=== PATIENT | male | born 1940 | race Caucasian/White ===

== ENCOUNTER 2018-05-07 16:32 | Observation (INO) | payer OTHER ==
--- OUTSIDE RECORDS SUMMARY | 2018-05-07 17:30 | XMS REPORT | Clinical Summary ---
:1940 Author Organization [facility] Address [address] [place] [address] Care Team Providers Name Role Phone Jose De Jesus Michael MD Primary Care Provider Allergies No Known Allergies Current Medications Prescription Sig. Disp. Refills Start Date End Date Status aspirin (ECOTRIN) 81 Take 81 mg by Active MG enteric coated mouth daily. tablet metoprolol succinate Take 25 mg by Active XL (TOPROL-XL) 25 mg mouth daily. 24 hr tablet valsartan-hydrochlor Take 1 tablet Active othiazide by mouth (DIOVAN-HCT) 160-25 daily. mg per tablet pravastatin Take 40 mg by Active (PRAVACHOL) 40 MG mouth nightly. tablet clopidogrel (PLAVIX) Take 75 mg by Active 75 mg tablet mouth daily. tamsulosin (FLOMAX) Take 0.4 mg by Active 0.4 mg mouth 2 (two) capsule,extended times a day. release 24hr denosumab (PROLIA) Inject 60 mg Active 60 mg/mL syringe under the skin syringe every 6 (six) months. cholecalciferol, Take 5,000 Active vitamin D3, (VITAMIN Units by mouth D3) 1,000 unit daily. tablet cyanocobalamin 250 Take 2,500 mcg Active MCG tablet by mouth nightly. multivitamin Take 1 tablet Active (THERAGRAN) tablet by mouth daily. ascorbic acid, Take 1,000 mg Active vitamin C, (vitamin by mouth C) 1000 MG tablet nightly. VITAMIN K2 ORAL Take 1 tablet Active by mouth daily. UBIDECARENONE Take 100 mg by Active (COQ-10 ORAL) mouth daily. magnesium oxide 250 Take 1,000 mg Active mg tablet by mouth 2 (two) times a day. BACILLUS COAGULANS Take 1 tablet Active (PROBIOTIC, B. by mouth 2 COAGULANS, ORAL) (two) times a day. polyethylene glycol Take 17 g by Active (MIRALAX) 17 gram mouth 3 packet (three) times a week. biotin 1 mg capsule Take 5,000 mg Active by mouth daily. GLUTATHIONE MISC 2 capsules Active daily. pantoprazole TAKE ONE (1) 90 tablet 2 02/18/2018 Active (PROTONIX) 40 MG EC TABLET(S) BY tablet MOUTH ONCE A DAY. pantoprazole Take 1 tablet 90 tablet 3 12/19/2016 Discontinued (PROTONIX) 40 MG EC (40 mg total) 8 tablet by mouth daily. Active Problems Problem Noted Date Ischemic cardiomyopathy 11/26/2016 Hood esophagus Colon polyp Diverticulosis GERD (gastroesophageal reflux disease) Ulcerative colitis Encounters Date Type Specialty Care Team Description 02/18/2018 Refill Gastroenterology Sly Nuñez MD after 05/06/2017 Family History Medical History Relation Name Comments Cancer Brother Cancer Father Heart disease Mother Relation Name Status Comments Brother Father Mother Social History Tobacco Use Types Packs/Day Years Used Date Former Smoker 10 Alcohol Use Drinks/Week oz/Week Comments Yes 1 Glasses of wine 0.6 Sex Assigned at Date Recorded Not on file Last Filed Vital Signs Not on file Plan of Treatment Health Maintenance Due Date Last Done Comments SHINGRIX VACCINE (#1) 1989 ZOSTER VACCINE 1999 PNEUMOCOCCAL POLYSACCHARIDE VACCINE AGE 65 AND OVER 2004 PNEUMOCOCCAL-13 2004 INFLUENZA VACCINE 04/01/2018 Implants Implanted Type Area Amf Mechanic Device Expiration Model / Identifier Date Serial / Lot Endotak [place] G Model 0295 59 Cm Df4 Tachy Lead - [id number] Cardiac Pacing N/A: CATHAY 07/04/2018 0295 / Implanted: 11/26/2016 (Quantity not on file) Leads or N/A [employer] CRM [id number] / Electrodes or [id number] Accessories Acuity X 4 - [id number] Cardiac Pacing N/A: CATHAY 01/14/2018 4671 / Implanted: 11/26/2016 (Quantity not on file) Leads or N/A [employer] CRM [id number] / Electrodes or [id number] Accessories Ingevity Mri Pacing Lead 45cm - [id number] Cardiac Pacing N/A: CATHAY [id number] 45 / Implanted: 11/26/2016 (Quantity not on file) Leads or N/A [employer]- CRM [id number] / Electrodes or [id number] Accessories Dynagen Direct Care Provider ICD CATHAY [id number] / Implanted: Qty: 1 on 11/26/2016 by Arya Pratt MD [employer] [id number] / [id number] Results Not on fileafter 05/06/2017 Insurance Payer Benefit Plan / Group Subscriber ID Type Phone Address AETNA MEDICARE AETNA MEDICARE HMO/PPO [facility] xxxxxxxx HMO DR PULIDO [phone] [address]
[2018-05-07 17:48] VITALS: BMI 30.6
[2018-05-07] MEDS ORDERED: ALBUTEROL 2.5 MG/3 ML NEB SOL IH PRN (17:59)
[2018-05-07] MEDS ORDERED: PNEUMOCOCCAL VACCINE 0.5 ML IMVAC ONE (18:00)
[2018-05-07] MEDS ORDERED: ONDANSETRON 4 MG (ODT) TAB PO PRN (18:00)
[2018-05-07] MEDS ORDERED: ONDANSETRON 4 MG/2 ML VIAL IV PRN (18:00)
[2018-05-07] MEDS ORDERED: POLYETHYL GLY 3350 17 GM/DOSE PO PRN (18:00)
[2018-05-07] MEDS ORDERED: LOPERAMIDE HCL 2 MG CAPSULE PO PRN (18:00)
[2018-05-07] MEDS ORDERED: DIPHENHYDRAMINE 25 MG TAB/CAP PO PRN (18:00)
[2018-05-07] MEDS ORDERED: ACETAMINOPHEN 325 MG TABLET PO PRN (18:00)
[2018-05-07] MEDS: NACHLORIDE 0.45% 1,000 ML IV SCH (18:52)
[2018-05-07 18:56] LABS: Absolute Lymphocytes (CBC) 1.1 K/uL (0.7-4.9); Absolute Monocytes 1.1 K/uL (0.1-1.3); Basophils % 0.9 % (0-1.3); Eosinophils % 2.5 % (0-4.4); Hematocrit 43.3 % (39.6-49.0); Lymphocytes % 8.1 % (15.3-44.8); MCV 87.6 fL (80-100); MPV 9.7 fL (7.6-11.3); Monocytes % 7.9 % (3.3-12.3); RBC Red Blood Cell Count 4.94 M/uL (4.33-5.43)
[2018-05-07 19:18] LABS: Protime INR 1.23
[2018-05-07] MEDS: LEVALBUTEROL 1.25 MG/3 ML NEB IH SCH (19:39)
[2018-05-07] MEDS: IPRATROPIUM BROM 0.5MG/2.5ML IH SCH (19:39)
[2018-05-07 20:10] LABS: ALT/SGPT 12 U/L (12-78); AST/SGOT 21 U/L (15-37); Albumin 3.8 g/dL (3.4-5.0); Alkaline Phosphatase 70 U/L (45-117); BUN Blood Urea Nitrogen 15 mg/dL (7-18); Bicarbonate 30 mmol/L (21-32); Bilirubin Direct 0.3 mg/dL (0-0.2); Bilirubin Total 0.7 mg/dL (0.2-1.0); Glucose Level 107 mg/dL (74-106); Magnesium 2.2 mg/dL (1.8-2.4); NT PRO-BNP 819 pg/mL (<450); Phosphorus 2.8 mg/dL (2.5-4.9); Potassium 3.8 mmol/L (3.5-5.1); Protein, Total 8.5 g/dL (6.4-8.2); Sodium Level 135 mmol/L (136-145); Thyroid Stimulating Hormone 0.788 uIU/mL (0.360-3.740)
[2018-05-07] MEDS: METOPROLOL XL 25 MG TAB PO SCH (21:00)
[2018-05-07] MEDS ORDERED: CIPROFLOXACIN 400 MG/200 ML IVPB IV SCH (21:00)
[2018-05-07] MEDS: ENOXAPARIN 40 MG/0.4 ML SQ SCH (21:33)
[2018-05-07] MEDS: ATORVASTATIN 10 MG TAB PO SCH (21:37)
[2018-05-07 22:05] LABS: Urine Appearance CLEAR; Urine Bilirubin NEGATIVE (NEG); Urine Blood NEGATIVE (NEG); Urine Color YELLOW; Urine Glucose NEGATIVE (NEG); Urine Protein NEGATIVE (NEG); Urine Specific Gravity >=1.030 (1.005-1.030); Urine Urobilinogen 0.2 mg/dL (0.2-1.0); Urine pH 5.5 (5.0-7.0)
--- NOTE | 2018-05-07 22:13 | RAD REPORT ---
EXAM DESCRIPTION: CT - Chest For Pe Angio - 05/07/2018 9:03 pm CLINICAL HISTORY: Chest pain COMPARISON: None. TECHNIQUE: Dynamically enhanced axial 3 mm thick images of the chest were obtained during administra tion of <100> mL Isovue 370 IV contrast. Coronal and oblique reconstruction images were generated and reviewed. Exam utilizes a protocol for optimal evaluation of pulmonary arterial tree. Maximum intensity projections 3D imaging was utilized All CT scans are performed using dose optimization technique as appropriate and may include automated exposure control or mA/KV adjustment according to patient size. FINDINGS: A pulmonary embolus is not seen. A thoracic aortic aneurysm is not noted. A pleural effusion is not seen. A pericardial effusion is not seen. Moderate ground-glass opacities are present within the right lung. Mild ground-glass opacities are se en within the left lung. Mild to moderate bilateral interstitial lung opacities are present which are mostly subpleural IMPRESSION: Negative for a pulmonary embolism. Mild to moderate ground-glass opacities within the lungs indicative of an alveolitis. This is superim posed over [id number] bilateral interstitial lung opacities which have the appearance of pulmon silvia fibrosis
--- NOTE | 2018-05-07 22:15 | RAD REPORT ---
EXAM DESCRIPTION: Larryt Pa And Lat (2 Views)05/07/2018 9:17 pm CLINICAL HISTORY: Chest pain COMPARISON: 2016 FINDINGS: Moderate bilateral pulmonary opacities are seen. The heart is moderately enlarged. Pacema ker leads are in place IMPRESSION: Moderate bilateral pulmonary opacities probably represent pulmonary edema or pneumonia/ pneumonitis superimposed over pulmonary fibrosis
[2018-05-07 22:16] LABS: Urine Microscopic Reflex NO UMIC
--- NOTE | 2018-05-07 22:51 | RAD REPORT ---
EXAM DESCRIPTION: CT - Abdomen Pelvis W Contrast - 05/07/2018 9:03 pm CLINICAL HISTORY: Abdominal pain. COMPARISON: 2013 TECHNIQUE: Computed axial tomography of the abdomen and pelvis was obtained. 100 cc Isovue-300 is ad ministered intravenously. Oral contrast was given. All CT scans are performed using dose optimization technique as appropriate and may include automated exposure control or mA/KV adjustment according to patient size. FINDINGS: A hiatal hernia contains a portion of the pancreas. It is unchanged in appearance from the prior exam . The pancreas is normal density. Hepatic and splenic granulomata are seen. Adrenals and kidneys appear unremarkable. Diverticula stem from the colon without evidence of diverticulitis Bilateral inguinal hernias contain fat IMPRESSION: No acute abnormality is displayed
[2018-05-08] MEDS ORDERED: METRONIDAZOLE 500mg IVPB 500 MG/100 ML BAG IV SCH ×2 (01:00→21:00)
[2018-05-08] MEDS: LEVALBUTEROL 1.25 MG/3 ML NEB IH SCH ×4 (03:38→20:45)
[2018-05-08] MEDS: IPRATROPIUM BROM 0.5MG/2.5ML IH SCH ×4 (03:39→20:45)
[2018-05-08 05:01] LABS: Absolute Lymphocytes (CBC) 1.3 K/uL (0.7-4.9); Absolute Monocytes 0.9 K/uL (0.1-1.3); Absolute Neutrophil 7.9 K/uL (1.8-8.0); Basophils % 0.4 % (0-1.3); Eosinophils % 3.4 % (0-4.4); Hematocrit 39.4 % (39.6-49.0); Lymphocytes % 12.2 % (15.3-44.8); MCH 29.9 pg (27.0-35.0); MCV 88.9 fL (80-100); MPV 9.1 fL (7.6-11.3); Monocytes % 8.4 % (3.3-12.3); RBC Red Blood Cell Count 4.44 M/uL (4.33-5.43)
[2018-05-08 05:24] LABS: Magnesium 2.2 mg/dL (1.8-2.4); Potassium 3.4 mmol/L (3.5-5.1)
[2018-05-08] MEDS: PANTOPRAZOLE 40MG TABLET PO SCH (05:27)
--- NOTE | 2018-05-08 08:43 | RAD REPORT ---
EXAM DESCRIPTION: US - Abdomen Exam Limited - 05/08/2018 7:27 am CLINICAL HISTORY: Abdominal pain. COMPARISON: 2013 FINDINGS: The gallbladder wall is not thickened. A gallstone is not seen. The biliary tree is normal caliber. IMPRESSION: Unremarkable gallbladder ultrasound.
[2018-05-08] MEDS: ASPIRIN 81 MG CHEWABLE TABLET PO SCH (08:56)
[2018-05-08] MEDS: LOSARTAN/HCTZ 50-12.5 PO SCH (08:56)
[2018-05-08] MEDS: CETIRIZINE HCL 5 MG TABLET PO SCH (08:57)
[2018-05-08] MEDS: GABAPENTIN 100 MG CAP PO SCH (08:57)
[2018-05-08] MEDS: CLOPIDOGREL 75 MG TABLET PO SCH (08:57)
[2018-05-08] MEDS: FUROSEMIDE 20 MG TABLET PO SCH (08:58)
[2018-05-08] MEDS: levoFLOXacin 500 MG TAB PO SCH (08:59)
[2018-05-08] MEDS: HOME MED 1 EA UNK (Ubidecarenone [Co Q-10] 100 MG) PO SCH (09:00)
[2018-05-08] MEDS: VITAMIN K2 PO SCH (09:00)
[2018-05-08] MEDS ORDERED: POLYETHYL GLY 3350 17 GM/DOSE PO SCH (09:00)
[2018-05-08] MEDS: VITAMIN D 1000 UNIT TAB PO SCH (09:00)
[2018-05-08] MEDS: METOPROLOL XL 25 MG TAB PO SCH ×2 (09:00→20:39)
[2018-05-08] MEDS: TRAMADOL HCL 50 MG TAB PO SCH (09:00)
[2018-05-08] MEDS: ENOXAPARIN 40 MG/0.4 ML SQ SCH (09:02)
--- NOTE | 2018-05-08 11:49 | EKG ---
Test Date: 2018-05-08 Test Time: 09:20:48 Dryland Farmer: LAKESHA MEASUREMENT RESULTS: Intervals: Rate: 76 MN: 150 QRSD: 172 QT: 460 QTc: 517 [place]: P: 25 MN: 150 QRS: 227 T: 41 INTERPRETIVE STATEMENTS: Electronic ventricular pacemaker Compared to ECG 09/13/2015 16:52:51 Atrial-sensed ventricular-paced complex(es) or rhythm no longer present Sinus rhythm no longer present First degree AV block no longer present Electronically Signed On 05-08-18 11:48:00 CDT by Antonio Camara
--- NOTE | 2018-05-08 14:41 | RAD REPORT ---
EXAM DESCRIPTION: RAD - Abdomen 1 View (KUB) - 05/08/2018 2:16 pm CLINICAL HISTORY: Abdomen pain. FINDINGS: The bowel gas pattern is unremarkable. Contrast from a recent CT scan is present within the colon. No abnormal mass is seen
--- NOTE | 2018-05-08 15:31 | P.PN ---
Subjective Date of Service: 05/08/18 Chief Complaint: BLOATED IN ABDOMEN Subjective: No new changes HE IS BREATHING BETTER BUT THE ABDOMEN STAYS DISTENDED. HE DENIES ANY CHEST PAIN. HIS PAIN IS UPPER ABDOMEN EPIG AND RUQ. Review of Systems 10-point ROS is otherwise unremarkable Gastrointestinal: Distention Physical Examination - Vital Signs Temperature: 97.3 F Blood Pressure: 134/74 Pulse: 77 Respirations: 18 Pulse Ox (%): 92 - Physical Exam General: Mild distress HEENT: Atraumatic, PERRLA, EOMI Neck: Supple, JVD not distended Respiratory: Clear to auscultation bilaterally, Normal air movement Cardiovascular: Regular rate/rhythm, Normal S1 S2 Gastrointestinal: Distended (UPPER ABDOMEN. NO REBOUND, NO RIGIDITY, MILD TENDER.) Musculoskeletal: No tenderness Integumentary: No rashes Neurological: Normal speech, Normal tone, Normal affect Lymphatics: No axilla or inguinal lymphadenopathy - Studies Laboratory Data (last 24 hrs) 05/08/18 04:41: Sodium 136, Potassium 3.4 L, BUN 13, Creatinine 0.90, Glucose 105, Magnesium 2.2 05/08/18 04:41: WBC 10.5 D, Hgb 13.3 L, Hct 39.4 L, Plt Count 112 L D 05/07/18 18:35: Sodium 135 L, Potassium 3.8, BUN 15, Creatinine 1.00, Glucose 107 H, Phosphorus 2.8, Magnesium 2.2, Total Bilirubin 0.7, AST 21, ALT 12, Alkaline Phosphatase 70 05/07/18 18:35: PT 14.5 H, INR 1.23, APTT 37.1 H 05/07/18 18:35: WBC 13.7 H, Hgb 14.8, Hct 43.3, Plt Count 144 L Medications List Reviewed: Yes Assessment And Plan - Current Problems (Diagnosis) (1) Bacterial pneumonia Current Visit: Yes Status: Acute Plan: I CHANGED ABX TO LEVAQUIN STOP CIPRO AND FLAGYL. (2) Distended abdomen Current Visit: Yes Status: Acute Plan: NO OBSTRUCTION ON CT OR X RAY SONOGRAM NEGATIVE FOR GB ISSUES. ORDER HIDA SCAN. DR OBREGON CONSULTED HE DOES NOT WANT ANY SURGERY HERE. I TOLD HIM WE ARE NOT GOING TO NEED SURGERY FOR NOW. HE MAY NEED GASTRIC EMPTYING STUDY OR BARIUM FOLLOW THROUGH. NO SIGNS OF ACUTE ABDOMEN. (3) Abdominal pain, right upper quadrant Onset Date: 07/19/14 Current Visit: No Status: Acute Plan: THIS IS MILD EPIG ADN RUQ NO REBOUND DIFFUSE MILD TENDERNESS. ORDER HIDA SCAN.
[2018-05-08] MEDS: ATORVASTATIN 10 MG TAB PO SCH (20:40)
[2018-05-09] MEDS: NACHLORIDE 0.45% 1,000 ML IV SCH (02:20)
[2018-05-09] MEDS: IPRATROPIUM BROM 0.5MG/2.5ML IH SCH ×2 (03:35→08:40)
[2018-05-09] MEDS: LEVALBUTEROL 1.25 MG/3 ML NEB IH SCH ×2 (03:35→08:40)
[2018-05-09 05:44] LABS: Absolute Lymphocytes (CBC) 1.2 K/uL (0.7-4.9); Absolute Monocytes 0.8 K/uL (0.1-1.3); Absolute Neutrophil 6.5 K/uL (1.8-8.0); Basophils % 0.3 % (0-1.3); Eosinophils % 6.4 % (0-4.4); Lymphocytes % 13.3 % (15.3-44.8); MCH 29.9 pg (27.0-35.0); MCV 88.2 fL (80-100); MPV 9.8 fL (7.6-11.3); Monocytes % 8.8 % (3.3-12.3); RBC Red Blood Cell Count 4.65 M/uL (4.33-5.43)
[2018-05-09 05:57] LABS: Magnesium 2.4 mg/dL (1.8-2.4); Potassium 3.8 mmol/L (3.5-5.1)
[2018-05-09] MEDS: PANTOPRAZOLE 40MG TABLET PO SCH (06:00)
[2018-05-09] MEDS: ENOXAPARIN 40 MG/0.4 ML SQ SCH (08:55)
[2018-05-09] MEDS: levoFLOXacin 500 MG TAB PO SCH (08:56)
[2018-05-09] MEDS: ASPIRIN 81 MG CHEWABLE TABLET PO SCH (08:56)
[2018-05-09] MEDS: LOSARTAN/HCTZ 50-12.5 PO SCH (08:56)
[2018-05-09] MEDS: FUROSEMIDE 20 MG TABLET PO SCH (08:56)
[2018-05-09] MEDS: GABAPENTIN 100 MG CAP PO SCH (08:56)
[2018-05-09] MEDS: TRAMADOL HCL 50 MG TAB PO SCH (08:58)
[2018-05-09] MEDS: CLOPIDOGREL 75 MG TABLET PO SCH (08:58)
[2018-05-09] MEDS: METOPROLOL XL 25 MG TAB PO SCH (08:58)
[2018-05-09] MEDS: VITAMIN D 1000 UNIT TAB PO SCH (08:58)
[2018-05-09] MEDS: HOME MED 1 EA UNK (Ubidecarenone [Co Q-10] 100 MG) PO SCH (08:58)
[2018-05-09] MEDS: CETIRIZINE HCL 5 MG TABLET PO SCH (08:58)
[2018-05-09] MEDS: VITAMIN K2 PO SCH (09:00)
[2018-05-09 10:42] VITALS: O2SAT 93
--- NOTE | 2018-05-09 11:02 | RAD REPORT ---
EXAM DESCRIPTION: NM - Hepatobiliary System Imagin - 05/09/2018 9:37 am CLINICAL HISTORY: dyskenisa, pain, bloating, normal sono, high suspc Upper abdominal pain. COMPARISON: Abdomen Pelvis W Contrast dated 05/07/2018 TECHNIQUE: The patient was administered 6.4 mCi Tc99m Choletec. Imaging of the right upper quadrant was performed initially for up to 60 minutes. Gallbladder ejection fraction determination was then performed utilizing 8 ounces ice cream. FINDINGS: Normal hepatic uptake and excretion with appropriate clearance of background blood pool ac tivity. Normal visualization of biliary and small bowel activity. Gallbladder visualizes within normal time limits. The calculated ejection fraction inaccurate due to lack of contraction from ice cream. Subjective pain reported by the patient: Pre-procedure - 2/10 During or subsequent to ice cream - unchanged. IMPRESSION: Patient cystic duct and patent sphincter of Oddi. No delay in visualization of the gallb ladder, biliary tree, or duodenum. Ejection fraction is inaccurate due to lack of contraction from ice cream. Subjective patient pain assessment as detailed above.
--- NOTE | 2018-05-09 11:21 | P.DS ---
Admission Date: 05/07/18 Discharge Date: 05/09/18 Disposition: ROUTINE DISCHARGE Discharge Condition: FAIR Reason for Admission: BLOATED IN ABDOMEN - Problems (1) Bacterial pneumonia Onset Date: 05/08/18 Current Visit: Yes Status: Acute (2) Distended abdomen Onset Date: 05/08/18 Current Visit: Yes Status: Acute (3) Abdominal pain, right upper quadrant Onset Date: 07/19/14 Current Visit: No Status: Acute Hospital Course: MR. PEREZ IS DOING BETTER WITH BREATHING. HE HAS DISTENSION OF STOMACH AFTER FOOD. I DID FULL EVAL. SONOGRAM NEGATIVE. CT SCAN NEGSATIVE , HAS SMALL HIATAL HERNIA WITH TAIL OF PANCREAS ALSO. HE HAS NO PAIN. I CHECKED AMYLASE AND LIPASE BUT I DON'T SUSPECT ACUTE PANCREATITIS. HIDA SCAN IS NEGATIVE. HE WILL GET DR LANG TO FU IF SYMPTOMS CONTINUE. HE IS STABLE TO BE DISCHARGED. HE WILL EAT SMALL AMOUNTS OF EASILY DIGESTABLE FOOD. AND FU IN OFFICE. Vital Signs/Physical Exam: Temp Pulse Resp BP Pulse Ox 97.2 F 75 18 147/81 H 91 05/09/18 08:00 05/09/18 08:00 05/09/18 08:00 05/09/18 08:00 05/09/18 08:00 Laboratory Data at Discharge: WBC 9.2 K/uL (4.3-10.9) 05/09/18 04:21 Hgb 13.9 g/dL (13.6-17.9) 05/09/18 04:21 Hct 41.0 % (39.6-49.0) 05/09/18 04:21 Plt Count 126 K/uL (152-406) L 05/09/18 04:21 PT 14.5 SECONDS (9.5-12.5) H 05/07/18 18:35 INR 1.23 05/07/18 18:35 APTT 37.1 SECONDS (24.3-36.9) H 05/07/18 18:35 Sodium 140 mmol/L (136-145) 05/09/18 04:21 Potassium 3.8 mmol/L (3.5-5.1) 05/09/18 04:21 BUN 12 mg/dL (7-18) 05/09/18 04:21 Creatinine 1.00 mg/dL (0.55-1.3) 05/09/18 04:21 Glucose 100 mg/dL (74-106) 05/09/18 04:21 Phosphorus 2.8 mg/dL (2.5-4.9) 05/07/18 18:35 Magnesium 2.4 mg/dL (1.8-2.4) 05/09/18 04:21 Total Bilirubin 0.7 mg/dL (0.2-1.0) 05/07/18 18:35 AST 21 U/L (15-37) 05/07/18 18:35 ALT 12 U/L (12-78) 05/07/18 18:35 Alkaline Phosphatase 70 U/L (45-117) 05/07/18 18:35 Home Medications: Aspirin Chewable [Aspirin Chewable*] 81 mg PO DAILY 07/18/14 Clopidogrel Bisulfate [Plavix*] 75 mg PO DAILY 07/18/14 Gabapentin [Neurontin*] 300 mg PO DAILY 07/18/14 Metoprolol Succinate [Toprol Xl*] 25 mg PO BID 07/18/14 Pantoprazole [Protonix Tab*] 40 mg PO 0600 07/18/14 Ubidecarenone [Co Q-10] 100 mg PO DAILY 07/18/14 Cholecalciferol (Vitamin D3) [Vitamin D3] 1,000 unit PO DAILY 05/07/18 Furosemide 20 mg PO DAILY 05/07/18 Levocetirizine Dihydrochloride [24Hr Allergy Relief] 5 mg PO DAILY 05/07/18 Losartan/Hydrochlorothiazide [Losartan-Hctz 50-12.5 mg Tab] 1 tab PO DAILY 05/07 Polyethylene Glycol 3350 [Miralax] 17 gm PO SEECOM 05/07/18 Pravastatin Sodium 40 mg PO BEDTIME 05/07/18 Tramadol HCl [Ultram] 1 tab PO DAILY 05/07/18 Vitamin K2 1 tab PO DAILY 05/07/18 levoFLOXacin [Levaquin*] 500 mg PO DAILY #10 tab 05/09/18 New Medications: levoFLOXacin [Levaquin*] 500 mg PO DAILY #10 tab Patient Discharge Instructions: EAT SOFT FOOD AND LIQUIDS. CALL DR LANG AND MAKE APT IF BLOATING CONTINUES. SEE YOU IN ABOUT 10 DAYS . PM Diet: Regular Activity: Ad xavier
[2018-05-09 12:59] LABS: Amylase Level 34 U/L (25-115); Lipase 100 U/L (73-393)
[2018-05-09 13:44] VITALS: BP 152/71; TEMP 98
[2018-05-11 13:41] LABS: Vitamin D 1,25-Dihydroxy Total 38 pg/mL (18-72); Vitamin D,1,25-OH2, D2 <8 pg/mL
== END 2018-05-09 12:15 | disposition home or self-care (01) ==
LOC: 2ND 17:27
PROVIDERS: ADMIT Internal Medicine; ATTEND Internal Medicine
DX: J15.9 Unspecified bacterial pneumonia (principal); R10.31 Right lower quadrant pain; Z95.0 Presence of cardiac pacemaker; R14.0 Abdominal distension (gaseous); Z79.02 Long term (current) use of antithrombotics/antiplatelets; Z79.82 Long term (current) use of aspirin; I10 Essential (primary) hypertension; I25.10 Atherosclerotic heart disease of native coronary artery without angina pectoris; I11.9 Hypertensive heart disease without heart failure; I43 Cardiomyopathy in diseases classified elsewhere; J44.9 Chronic obstructive pulmonary disease, unspecified; M81.0 Age-related osteoporosis without current pathological fracture; M54.16 Radiculopathy, lumbar region
CPT/HCPCS: 36415 ×3; 71046; 71275; 74018; 74177; 76705; 78226; 80048 ×3; 80076; 81003; 82150; 82607; 82652; 83690; 83735 ×3; 83880; 84100; 84443; 85025 ×3; 85379; 85610; 85730; 87040; 93005; 94640; 94760 ×7; A9537; G0378; G0379; J0744; J1650 ×2; J2405; Q9967

== ENCOUNTER 2018-10-03 22:00 | Inpatient (IN) | payer OTHER ==
--- OUTSIDE RECORDS SUMMARY | 2018-10-03 22:02 | XMS REPORT | Clinical Summary ---
:1940 Author Organization [facility] Address [address] [place] [address] Care Team Providers Name Role Phone Mikhail Chaidez MD Primary Care Provider Allergies No Known Allergies Medications Medication Sig Dispensed Refills Start Date End Date Status aspirin (ECOTRIN) 81 Take 81 mg by 0 Active MG enteric coated mouth daily. tablet metoprolol succinate Take 25 mg by 0 Active XL (TOPROL-XL) 25 mg mouth daily. 24 hr tablet pravastatin Take 40 mg by 0 Active (PRAVACHOL) 40 MG mouth nightly. tablet clopidogrel (PLAVIX) Take 75 mg by 0 Active 75 mg tablet mouth daily. denosumab (PROLIA) Inject 60 mg 0 Active 60 mg/mL syringe under the skin syringe every 6 (six) months. cholecalciferol, Take 5,000 0 Active vitamin D3, (VITAMIN Units by mouth D3) 1,000 unit daily. tablet cyanocobalamin 250 Take 2,500 mcg 0 Active MCG tablet by mouth nightly. multivitamin Take 1 tablet 0 Active (THERAGRAN) tablet by mouth daily. ascorbic acid, Take 1,000 mg 0 Active vitamin C, (vitamin by mouth C) 1000 MG tablet nightly. UBIDECARENONE Take 100 mg by 0 Active (COQ-10 ORAL) mouth daily. magnesium oxide 250 Take 1,000 mg 0 Active mg tablet by mouth 2 (two) times a day. BACILLUS COAGULANS Take 1 tablet 0 Active (PROBIOTIC, B. by mouth 2 COAGULANS, ORAL) (two) times a day. polyethylene glycol Take 17 g by 0 Active (MIRALAX) 17 gram mouth 3 packet (three) times a week. biotin 1 mg capsule Take 5,000 mg 0 Active by mouth daily. GLUTATHIONE MISC 2 capsules 0 Active daily. pantoprazole TAKE ONE (1) 90 tablet 2 02/18/2018 Active (PROTONIX) 40 MG EC TABLET(S) BY tablet MOUTH ONCE A DAY. losartan-hydrochloro TAKE ONE (1) 1 03/28/2018 Active thiazide (HYZAAR) TABLET(S) BY 50-12.5 mg per MOUTH ONCE A tablet DAY. traMADol (ULTRAM) 50 TAKE ONE (1) 2 02/21/2018 Active mg tablet TABLET(S) BY MOUTH THREE TIMES A DAY. furosemide (LASIX) TAKE ONE (1) 3 04/29/2018 Active 20 mg tablet TABLET(S) BY MOUTH ONCE A DAY. gabapentin TAKE ONE (1) 1 05/12/2018 Active (NEURONTIN) 300 mg CAPSULE(S) BY capsule MOUTH EVERY DAY AT BEDTIME. levocetirizine TAKE ONE (1) 3 05/08/2018 Active (XYZAL) 5 MG tablet TABLET(S) BY MOUTH ONCE A DAY AT BEDTIME. valsartan-hydrochlor Take 1 tablet 0 Discontinued othiazide by mouth 8 (DIOVAN-HCT) 160-25 daily. mg per tablet tamsulosin (FLOMAX) Take 0.4 mg by 0 Discontinued 0.4 mg mouth 2 (two) 8 capsule,extended times a day. release 24hr VITAMIN K2 ORAL Take 1 tablet 0 Discontinued by mouth 8 daily. pantoprazole Take 1 tablet 90 tablet 3 12/19/2016 Discontinued (PROTONIX) 40 MG EC (40 mg total) 8 tablet by mouth daily. denosumab (PROLIA) Inject 1 Stick 0 Discontinued 60 mg/mL syringe under the 8 syringe skin. Active Problems Problem Noted Date Ischemic cardiomyopathy 11/26/2016 Hood esophagus Colon polyp Diverticulosis GERD (gastroesophageal reflux disease) Ulcerative colitis Epigastric pain Encounters Date Type Specialty Care Team Description 06/17/2018 Documentation Gastroenterology Sera Morillo MA 05/25/2018 Office Visit Gastroenterology Sly Nuñez 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 (Primary Dx); MD Amadou Gastroesophageal reflux disease, esophagitis presence not specified 05/25/2018 Documentation Gastroenterology Sera Morillo MA 02/18/2018 Refill Gastroenterology Sly Nuñez MD after 10/02/2017 Family History Medical History Relation Name Comments Cancer Brother Cancer Father Heart disease Mother Relation Name Status Comments Brother Father Mother Social History Tobacco Use Types Packs/Day Years Used Date Former Smoker 10 Smokeless Tobacco: Former User Alcohol Use Drinks/Week oz/Week Comments Yes 1 Glasses of wine 0.6 Sex Assigned at Date Recorded Not on file Job Start Date Occupation Industry Not on file Not on file Not on file Travel History Travel Start Travel End No recent travel history available. Last Filed Vital Signs Vital Sign Reading Time Taken Blood Pressure 144/78 05/25/2018 1:34 PM CDT Pulse 92 05/25/2018 1:34 PM CDT Temperature 36.8 C (98.2 F) 05/25/2018 1:34 PM CDT Respiratory Rate - - Oxygen Saturation - - Inhaled Oxygen Concentration - - Weight 97.1 kg (214 lb) 05/25/2018 1:34 PM CDT Height - - Body Mass Index 29.85 05/25/2018 1:34 PM CDT Plan of Treatment Health Maintenance Due Date Last Done Comments SHINGLES VACCINES (1 of 2) 1989 PNEUMOCOCCAL POLYSACCHARIDE VACCINE AGE 65 AND OVER 2004 PNEUMOCOCCAL-13 2004 INFLUENZA VACCINE 04/01/2018 Implants Implanted Type Area Powerhouse Mechanic Helper Device Shelf Model / Identifier Expiration Serial / Date Lot Endotak [place] G Model 0295 59 Cm Df4 Tachy Lead - [id number] Cardiac Pacing N/A: [place] 07/04/2018 0295 / Implanted: 11/26/2016 (Quantity not on file) Leads or N/A [employer] CRM [id number] / Electrodes or [id number] Accessories Acuity X 4 - [id number] Cardiac Pacing N/A: [place] 01/14/2018 [id number] / Implanted: 11/26/2016 (Quantity not on file) Leads or N/A [employer] [id number] / Electrodes or [id number] Accessories Ingevity Mri Pacing Lead 45cm - [id number] Cardiac Pacing N/A: [place] [id number] 45 / Implanted: 11/26/2016 (Quantity not on file) Leads or N/A [employer] CRM [id number] / Electrodes or [id number] Accessories Dynagen Software Packager ICD [place] [id number] / Implanted: Qty: 1 on 11/26/2016 by Arya Pratt MD [employer] [id number] / [id number] Results Not on fileafter 10/02/2017 Insurance Payer Benefit Plan / Group Subscriber ID Type Phone Address AETNA MEDICARE AETNA MEDICARE HMO/PPO [facility] xxxxxxxx HMO [address] ([place]) [place] [address]
[2018-10-03] MEDS ORDERED: IPRATROPIUM BROM 0.5MG/2.5ML ONE (22:44)
[2018-10-03] MEDS ORDERED: ALBUTEROL 2.5 MG/3 ML NEB SOL ONE (22:44)
[2018-10-03 22:45] LABS: Absolute Lymphocytes (CBC) 0.9 K/uL (0.7-4.9); Absolute Monocytes 0.9 K/uL (0.1-1.3); Absolute Neutrophil 8.6 K/uL (1.8-8.0); Eosinophils % 3.6 % (0-4.4); Hematocrit 45.2 % (39.6-49.0); Lymphocytes % 8.4 % (15.3-44.8); MPV 9.4 fL (7.6-11.3); Monocytes % 8.2 % (3.3-12.3); RBC Red Blood Cell Count 5.23 M/uL (4.33-5.43)
[2018-10-03 22:51] LABS: Protime INR 1.24
[2018-10-03 23:13] LABS: ALT/SGPT 11 U/L (12-78); AST/SGOT 26 U/L (15-37); Albumin 3.6 g/dL (3.4-5.0); Alkaline Phosphatase 83 U/L (45-117); BUN Blood Urea Nitrogen 28 mg/dL (7-18); Bicarbonate 30 mmol/L (21-32); Bilirubin Direct 0.2 mg/dL (0-0.2); Bilirubin Total 0.4 mg/dL (0.2-1.0); Glucose Level 123 mg/dL (74-106); Magnesium 1.9 mg/dL (1.8-2.4); NT PRO-BNP 939 pg/mL (<450); Protein, Total 8.5 g/dL (6.4-8.2); Sodium Level 140 mmol/L (136-145); Troponin (Emerg Dept Use Only) < 0.02 ng/mL (0.0-0.045)
[2018-10-04] MEDS ORDERED: Levofloxacin500mg IV 500 MG/100 ML BAG IV ONE (00:26)
[2018-10-04] MEDS ORDERED: CEFTRIAXONE/SWI 1gm 1 GM/10 ML SYR ONE (00:26)
--- NOTE | 2018-10-04 02:18 | ER ---
Nurse's Notes [facility] Name: Zev Sahu Age: 78 yrs Sex: Male : 1940 Arrival Date: 10/03/2018 Time: 22:01 Bed 4 Private MD: Mikhail Chaidez V Diagnosis: Other pneumonia, unspecified organism Presentation: 10/03 22:13 Presenting complaint: Patient states: he is having difficulty breathing for several bb days which is getting worse. Transition of care: patient was not received from another setting of care. Onset of symptoms is unknown. Risk Assessment: Do you want to hurt yourself or someone else? Patient reports no desire to harm self or others. Initial Sepsis Screen: Does the patient meet any 2 criteria? No. Patient's initial sepsis screen is negative. Does the patient have a suspected source of infection?. Care prior to arrival: None. 22:13 Method Of Arrival: Ambulatory bb 22:13 Acuity: ANITHA 2 bb Triage Assessment: 22:44 General: Appears in no apparent distress. Behavior is calm, cooperative. Respiratory: ak1 the patient has moderate shortness of breath. Respiratory: Onset: The symptoms/episode began/occurred today. Historical: - Allergies: 22:26 No Known Allergies; bb - Home Meds: 22:26 pantoprazole 40 mg oral TbEC 1 tab once daily [Active]; losartan-hydrochlorothiazide bb 50-12.5 mg oral tab 1 tab once daily [Active]; pravastatin 40 mg oral tab 1 tab once daily [Active]; metoprolol succinate 25 mg oral Tb24 1 tab twice a day [Active]; tramadol 50 mg Oral tab 1 tab daily [Active]; Prolia 60 mg/mL subcutaneous syrg 1 mL every 6 mo [Active]; furosemide 20 mg Oral tab 1 tab once daily [Active]; gabapentin 300 mg oral cap 1 cap daily [Active]; levocetirizine 5 mg oral tab 1 tab once daily [Active]; montelukast 10 mg oral tab 1 tab once daily [Active]; ipratropium bromide 0.02 % inhalation soln [Active]; vit D3 [Active]; clopidogrel 75 mg oral tab 1 tab once daily [Active]; vit B 12 [Active]; viteyes [Active]; vit K2 [Active]; CoQ10 [Active]; probiotic [Active]; Miralax 17 gram Oral pwpk 1 packet [Active]; aspirin 81 mg Oral chew 1 tab once daily [Active]; CBD [Active]; Dymista [Active]; - PMHx: 22:26 GERD; CHF; Hypertension; Kidney stones; bb - PSHx: 22:26 Appendectomy; Hernia repair; Lithotripsy; bb - Immunization history:: Adult Immunizations up to date, Pneumococcal vaccine status is unknown, Flu vaccine is not up to date. - Social history:: Smoking status: Patient/guardian denies using tobacco, the patient reports quitting approximately 40 years ago. - Ebola Screening: : No symptoms or risks identified at this time. Screenin:42 Abuse screen: Denies threats or abuse. Denies injuries from another. Nutritional ak1 screening: No deficits noted. Tuberculosis screening: No symptoms or risk factors identified. Fall Risk None identified. Assessment: 22:42 General: Appears in no apparent distress. Behavior is calm, cooperative. Pain: Denies ak1 pain. Neuro: No deficits noted. Cardiovascular: Rhythm is Respiratory: Airway is patent Respiratory effort is labored. Respiratory: Reports shortness of breath cough that is. GI: No signs and/or symptoms were reported involving the gastrointestinal system. : No signs and/or symptoms were reported regarding the genitourinary system. EENT: No signs and/or symptoms were reported regarding the EENT system. Derm: No signs and/or symptoms reported regarding the dermatologic system. Musculoskeletal: No signs and/or symptoms reported regarding the musculoskeletal system. 22:55 Respiratory: ak1 10/04 00:01 Reassessment: Patient appears in no apparent distress at this time. No changes from ak1 previously documented assessment. pt informed of need for admission. pt stated she would like pt to take his own home medications, not to be dispensed from pharmacy. pt asked about AMA as well stating she has not had "good experiences with hospitals and doctors" pt stated she did not want her taken off any of his home medications. pt and family informed of process to have pharmacy check over pt's home medications prior to pt taking them. pt and family informed of need to home medications original bottles for verification as well. Dr. Styles at the bedside. will continue to monitor. 01:30 Reassessment: Patient appears in no apparent distress at this time. No changes from ak1 previously documented assessment. Patient states feeling better. Patient states symptoms have improved. Vital Signs: 10/03 22:13 BP 135 / 61; Pulse 96; Resp 22 S; Temp 97.7(TE); Pulse Ox 84% on R/A; Weight 96.16 kg bb (R); Height 5 ft. 10 in. (177.80 cm) (R); 22:54 BP 117 / 87; Pulse 89; Resp 20; Pulse Ox 93% on 2 lpm NC; ak1 02 00:13 BP 118 / 84; Pulse 98; Resp 26; Temp 98; Pulse Ox 92% on 2 lpm NC; ak1 01:30 BP 126 / 82; Pulse 95; Resp 26; Temp 98.1; Pulse Ox 94% on 2 lpm NC; ak1 02:03 BP 119 / 74; Pulse 82; Resp 22; Pulse Ox 93% on 2 lpm NC; ak1 03:14 BP 118 / 73; Pulse 88; Resp 18; Temp 98.1; Pulse Ox 92% on 2 lpm NC; ak1 10/03 22:13 Body Mass Index 30.42 (96.16 kg, 177.80 cm) 10/03 22:13 pt denies acute pain bb ED Course: 22:01 Patient arrived in ED. am2 22:02 Mikhail Chaidez MD is Private Physician. ds1 22:06 Dorene Mcconnell, RN is Primary Nurse. ak1 22:13 Arm band placed on Patient placed in an exam room, on a stretcher, on oxygen, on bb school lunch monitor, on pulse oximetry. Family accompanied patient. 22:14 Triage completed. bb 22:16 Inserted saline lock: 20 gauge in right antecubital area, using aseptic technique. ak1 Blood collected. 22:16 Initial lab(s) drawn, by me, First set of blood cultures drawn by me. ak1 22:26 Luther Styles MD is Attending Physician. 22:42 Patient has correct armband on for positive identification. Placed in gown. Bed in low ak1 position. Call light in reach. Side rails up X 1. Adult w/ patient. ekg monitor on. Pulse ox on. NIBP on. 22:42 XRAY Chest (1 view) Sent. ak1 22:42 Basic Metabolic Panel Sent. ak1 22:50 XRAY Chest (1 view) In Process Unspecified. EDMS 23:05 EKG done, by ED staff, reviewed by Luther Styles MD. ds4 23:30 Second set of blood cultures drawn by mi, X-ray(s) taken. ak1 10/04 00:13 No provider procedures requiring assistance completed. ak1 02:17 Mikhail Chaidez MD is Hospitalizing Provider. gs 02:48 Patient admitted, IV remains in place. ea Administered Medications: 10/03 22:42 Drug: AtroVENT Aerosol 0.5 mg Route: Inhalation; ak1 22:54 Follow up: Response: No adverse reaction ak1 22:42 Drug: Albuterol 2.5 mg Route: Inhalation; ak1 22:54 Follow up: Response: No adverse reaction ak1 10/04 00:16 Drug: Rocephin - (cefTRIAXone) 1 grams Route: IVPB; Infused Over: 30 mins; Site: right ea antecubital; 00:34 Follow up: Response: No adverse reaction; IV Status: Completed infusion; Completed ea infusion, medication administered IVP per pharmacy protocol, pt tolerated well 00:35 Drug: LevaQUIN 500 mg Volume: 100 ml; Route: IVPB; Infused Over: 60 mins; Site: right ea antecubital; 01:25 Follow up: Response: No adverse reaction; IV Status: Completed infusion ea Outcome: 02:17 Decision to Hospitalize by Provider. gs 02:30 Instructed on the need for admit, Demonstrated understanding of instructions. ea 03:12 Admitted to Med/surg accompanied by tech, via stretcher, room 407, with oxygen, with ak1 chart, Report called to Alise Barksdale RN 03:12 Condition: good 03:42 Patient left the ED. ak1 Signatures: Dispatcher [employer] EDNM Jasmin Negron ds1 Michelle Crespo RN RN bb Swanson, Donovan ds4 Dorene Mcconnell RN Angelita Pettit Elena, RN RN ea Starr, Gregory, MD MD gs
--- NOTE | 2018-10-04 02:18 | EDPHYS ---
Physician Documentation [facility] Name: Zev Sahu Age: 78 yrs Sex: Male : 1940 Arrival Date: 10/03/2018 Time: 22:01 Bed 4 Private MD: Mikhail Chaidez V ED Physician Luther Styles HPI: 10/04 02:06 This 78 yrs old Male presents to ER via Ambulatory with complaints of gs Breathing Difficulty. 02:06 The patient has shortness of breath at rest. Onset: The symptoms/episode began/occurred gs 1 week(s) ago, and became worse and became persistent. Duration: The symptoms are continuous, and are steadily getting worse. The patient's shortness of breath is aggravated by exertion. Associated signs and symptoms: Pertinent negatives: chest pain, fever, hemoptysis. Severity of symptoms: At their worst the symptoms were severe in the emergency department the symptoms are unchanged. The patient has experienced similar episodes in the past, a few times. Historical: - Allergies: 10/03 22:26 No Known Allergies; bb - Home Meds: 22:26 pantoprazole 40 mg oral TbEC 1 tab once daily [Active]; losartan-hydrochlorothiazide bb 50-12.5 mg oral tab 1 tab once daily [Active]; pravastatin 40 mg oral tab 1 tab once daily [Active]; metoprolol succinate 25 mg oral Tb24 1 tab twice a day [Active]; tramadol 50 mg Oral tab 1 tab daily [Active]; Prolia 60 mg/mL subcutaneous syrg 1 mL every 6 mo [Active]; furosemide 20 mg Oral tab 1 tab once daily [Active]; gabapentin 300 mg oral cap 1 cap daily [Active]; levocetirizine 5 mg oral tab 1 tab once daily [Active]; montelukast 10 mg oral tab 1 tab once daily [Active]; ipratropium bromide 0.02 % inhalation soln [Active]; vit D3 [Active]; clopidogrel 75 mg oral tab 1 tab once daily [Active]; vit B 12 [Active]; viteyes [Active]; vit K2 [Active]; CoQ10 [Active]; probiotic [Active]; Miralax 17 gram Oral pwpk 1 packet [Active]; aspirin 81 mg Oral chew 1 tab once daily [Active]; CBD [Active]; Dymista [Active]; - PMHx: 22:26 GERD; CHF; Hypertension; Kidney stones; bb - PSHx: 22:26 Appendectomy; Hernia repair; Lithotripsy; bb - Immunization history:: Adult Immunizations up to date, Pneumococcal vaccine status is unknown, Flu vaccine is not up to date. - Social history:: Smoking status: Patient/guardian denies using tobacco, the patient reports quitting approximately 40 years ago. - Ebola Screening: : No symptoms or risks identified at this time. ROS: 10/04 02:06 All other systems are negative. gs Exam: 02:06 Head/Face: Normocephalic, atraumatic. Eyes: Pupils equal round and reactive to light, gs extra-ocular motions intact. Lids and lashes normal. Conjunctiva and sclera are non-icteric and not injected. Cornea within normal limits. Periorbital areas with no swelling, redness, or edema. ENT: Nares patent. No nasal discharge, no septal abnormalities noted. Tympanic membranes are normal and external auditory canals are clear. Oropharynx with no redness, swelling, or masses, exudates, or evidence of obstruction, uvula midline. Mucous membranes moist. Neck: Trachea midline, no thyromegaly or masses palpated, and no cervical lymphadenopathy. Supple, full range of motion without nuchal rigidity, or vertebral point tenderness. No Meningismus. Chest/axilla: Normal chest wall appearance and motion. Nontender with no deformity. No lesions are appreciated. 02:06 Abdomen/GI: Soft, non-tender, with normal bowel sounds. No distension or tympany. No guarding or rebound. No evidence of tenderness throughout. Back: No spinal tenderness. No costovertebral tenderness. Full range of motion. Skin: Warm, dry with normal turgor. Normal color with no rashes, no lesions, and no evidence of cellulitis. MS/ Extremity: Pulses equal, no cyanosis. Neurovascular intact. Full, normal range of motion. Neuro: Awake and alert, GCS 15, oriented to person, place, time, and situation. Cranial nerves II-XII grossly intact. Motor strength 5/5 in all extremities. Sensory grossly intact. Cerebellar exam normal. Normal gait. 02:06 Constitutional: The patient appears alert, awake, in obvious distress, severely distressed. 02:06 Cardiovascular: Rate: tachycardic, Rhythm: regular, Pulses: no pulse deficits are appreciated. 02:06 ECG was reviewed by the Attending Physician. 02:06 Respiratory: severe repiratory distress is noted, Respirations: tachypnea, Breath sounds: rhonchi, that are mild, are heard diffusely. Vital Signs: 10/03 22:13 BP 135 / 61; Pulse 96; Resp 22 S; Temp 97.7(TE); Pulse Ox 84% on R/A; Weight 96.16 kg bb (R); Height 5 ft. 10 in. (177.80 cm) (R); 22:54 BP 117 / 87; Pulse 89; Resp 20; Pulse Ox 93% on 2 lpm NC; ak1 02 00:13 BP 118 / 84; Pulse 98; Resp 26; Temp 98; Pulse Ox 92% on 2 lpm NC; ak1 01:30 BP 126 / 82; Pulse 95; Resp 26; Temp 98.1; Pulse Ox 94% on 2 lpm NC; ak1 02:03 BP 119 / 74; Pulse 82; Resp 22; Pulse Ox 93% on 2 lpm NC; ak1 03:14 BP 118 / 73; Pulse 88; Resp 18; Temp 98.1; Pulse Ox 92% on 2 lpm NC; ak1 10/03 22:13 Body Mass Index 30.42 (96.16 kg, 177.80 cm) 10/03 22:13 pt denies acute pain bb MDM: 22:26 Patient medically screened. 10/04 02:06 Differential diagnosis: CHF exacerbation, Chronic Obstructive Pulmonary Disease gs Myocardial Infarction pneumonia. Data reviewed: vital signs, nurses notes. Counseling: I had a detailed discussion with the patient and/or guardian regarding: the historical points, exam findings, and any diagnostic results supporting the discharge/admit diagnosis, lab results, the need for further work-up and treatment in the hospital. Response to treatment: the patient's symptoms have markedly improved after treatment, and as a result, I will discharge patient. Physician consultation: Zhang Palomo MD and will see patient in unit. 10/03 22:30 Order name: Basic Metabolic Panel 10/03 22:30 Order name: CBC with Diff; Complete Time: 23:05 10/03 22:30 Order name: LFT's; Complete Time: 23:19 10/03 22:30 Order name: Magnesium; Complete Time: 23:19 10/03 22:30 Order name: NT PRO-BNP; Complete Time: 23:19 10/03 22:30 Order name: PT-INR; Complete Time: 23:05 10/03 22:30 Order name: Troponin (emerg Dept Use Only); Complete Time: 23:19 10/03 22:30 Order name: Basic Metabolic Panel; Complete Time: 23:19 EDKY 10/03 23:20 Order name: ABG 10/03 23:20 Order name: Blood Culture* 10/03 23:25 Order name: Lactate; Complete Time: 03:29 10/03 23:25 Order name: Procalcitonin; Complete Time: 03:29 10/04 02:39 Order name: Troponin I [facility] 10/04 02:39 Order name: Troponin I [facility] 10/03 22:30 Order name: XRAY Chest (1 view) 10/03 22:30 Order name: EKG; Complete Time: 22:31 10/03 22:30 Order name: Cardiac monitoring; Complete Time: 22:32 10/03 22:30 Order name: EKG - Nurse/Tech; Complete Time: 22:32 10/03 22:30 Order name: IV Saline Lock; Complete Time: 22:31 10/03 22:30 Order name: Labs collected and sent; Complete Time: 22:31 10/03 22:30 Order name: O2 Per Protocol; Complete Time: 22:31 10/03 22:30 Order name: O2 Sat Monitoring; Complete Time: 22:32 10/04 02:39 Order name: Consistent Carb (ADA) 2000 Fadi [facility] 10/04 02:39 Order name: Troponin I EDKY EC:06 Rate is 90 beats/min. Rhythm is regular with AV sequential paced. DE interval is gs normal. QRS interval is prolonged. ST Segment is depressed in leads V1, V2. Clinical impression: NSR w/ Non-specific ST/T Changes. Interpreted by me. Administered Medications: 10/03 22:42 Drug: AtroVENT Aerosol 0.5 mg Route: Inhalation; ak1 22:54 Follow up: Response: No adverse reaction ak1 22:42 Drug: Albuterol 2.5 mg Route: Inhalation; ak1 22:54 Follow up: Response: No adverse reaction ak1 10/04 00:16 Drug: Rocephin - (cefTRIAXone) 1 grams Route: IVPB; Infused Over: 30 mins; Site: right ea antecubital; 00:34 Follow up: Response: No adverse reaction; IV Status: Completed infusion; Completed ea infusion, medication administered IVP per pharmacy protocol, pt tolerated well 00:35 Drug: LevaQUIN 500 mg Volume: 100 ml; Route: IVPB; Infused Over: 60 mins; Site: right ea antecubital; 01:25 Follow up: Response: No adverse reaction; IV Status: Completed infusion ea Disposition: 10/04/18 02:17 Hospitalization ordered by Mikhail Chaidez for Inpatient Admission. Preliminary diagnosis is Other pneumonia, unspecified organism. - Bed requested for Telemetry/MedSurg (Inpatient). - Status is Inpatient Admission. ak1 - Condition is Stable. - Problem is new. - Symptoms have improved. UTI on Admission? No Signatures: Dispatcher [employer] EDMS Natasha Moreland RN RN Michelle Crespo RN RN bb Krenek, Amber RN CAROLYN [facility] Alicia Santana RN RN ea Starr, Gregory, MD MD gs Corrections: (The following items were deleted from the chart) 02:37 02:17 Hospitalization Ordered by Mikhail Chaidez MD for Inpatient Admission. Preliminary diagnosis is Other pneumonia, unspecified organism. Bed requested for Telemetry/MedSurg (Inpatient). Status is Inpatient Admission. Condition is Stable. Problem is new. Symptoms have improved. UTI on Admission? No. gs 03:42 02:37 10/04/2018 02:17 Hospitalization Ordered by Mikhail Chaidez MD for Inpatient ak1 Admission. Preliminary diagnosis is Other pneumonia, unspecified organism. Bed requested for Telemetry/MedSurg (Inpatient). Status is Inpatient Admission. Condition is Stable. Problem is new. Symptoms have improved. UTI on Admission? No. mw
[2018-10-04] MEDS ORDERED: IPRATROPIUM BROM 0.5MG/2.5ML NEB PRN ×2 (02:32→12:30)
[2018-10-04] MEDS ORDERED: ACETAMINOPHEN 500 MG TAB PO PRN (02:32)
[2018-10-04] MEDS ORDERED: ALBUTEROL 2.5 MG/3 ML NEB SOL NEB PRN ×2 (02:32→13:00)
[2018-10-04 04:13] LABS: Arterial Blood Carboxyhemoglob 1.7 % (0-1.5); Blood O2 Saturation 93.1 % (92-98.5)
[2018-10-04 05:02] VITALS: BMI 29.8
--- NOTE | 2018-10-04 06:19 | EKG ---
Test Date: 2018-10-03 Test Time: 22:17:56 Cooler Conveyor Loader: KRISTAN MEASUREMENT RESULTS: Intervals: Rate: 90 OR: 146 QRSD: 166 QT: 424 QTc: 518 [place]: P: 23 OR: 146 QRS: 27 T: 55 INTERPRETIVE STATEMENTS: Atrial-sensed ventricular-paced rhythm Biventricular pacemaker detected Abnormal ECG Compared to ECG 05/08/2018 09:20:48 No significant changes Electronically Signed On 10-04-18 06:14:14 ROTATING EQUIPMENT SPECIALIST by Jose Enrique Nino
[2018-10-04 06:25] LABS: Urine Appearance CLEAR; Urine Bilirubin NEGATIVE (NEG); Urine Blood NEGATIVE (NEG); Urine Color YELLOW; Urine Glucose NEGATIVE (NEG); Urine Protein NEGATIVE (NEG); Urine Specific Gravity 1.025 (1.005-1.030); Urine Urobilinogen 0.2 mg/dL (0.2-1.0); Urine pH 5.5 (5.0-7.0)
[2018-10-04 07:09] LABS: Urine Microscopic Reflex NO UMIC
[2018-10-04] MEDS: FUROSEMIDE 20 MG/ 2ML VIAL IV SCH ×2 (08:25→17:16)
[2018-10-04] MEDS: CEFTRIAXONE/SWI 1gm 1 GM/10 ML SYR IVP SCH ×2 (08:26→20:10)
[2018-10-04] MEDS ORDERED: CEFTRIAXONE 1 GM/NS 50 ML 1 GM/50 ML BAG IV SCH (09:00)
--- NOTE | 2018-10-04 10:59 | RAD REPORT ---
EXAM DESCRIPTION: RAD - Chest Single View - 10/03/2018 10:49 pm CLINICAL HISTORY: SOB Chest pain. COMPARISON: Abdomen 1 View (KUB) dated 05/08/2018; Chest Pa And Lat (2 Views) dated 05/07/2018; Abdomen 1 View (KUB) dated 10/21/2016; ABDOMEN 1 VIEW KUB dated 10/18/2015 FINDINGS: Portable technique limits examination quality. Patchy bilateral pulmonary opacities are present, greater on the right, suspicious for pneumonia or p ulmonary edema. The heart is upper limit of normal in size with a 2 multi-lead pacer/defibrillator de vice seen. No displaced fractures.
[2018-10-04] MEDS: METHYLPREDNISOLONE 40 MG INJ IV SCH ×3 (11:17→23:23)
[2018-10-04] MEDS ORDERED: TRAMADOL HCL 50 MG TAB PO PRN (12:15)
--- NOTE | 2018-10-04 12:22 | P.HP ---
Certification for Inpatient Patient admitted to: Inpatient With expected LOS: >2 Midnights Practitioner: I am a practitioner with admitting privileges, knowledge of patient current condition, hospital course, and medical plan of care. Services: Services provided to patient in accordance with Admission requirements found in Title 42 Section 412.3 of the Code of Federal Regulations Patient History Date of Service: 10/04/18 Reason for admission: DYSPNEA History of Present Illness: MR. PEREZ HAS KNOWN PULMONARY FIBROSIS, HE IS GRADUALLY GETTING WORSE. HE IS SUPPOSED TO SEE DR. MEDINA BUT ENDS UP IN ER HE GOT WORSE IN DYSPNEA. HE HAS NO CHEST PAIN, NO MORE COUGHING THEN USUAL AND NO FEVER. HE FEELS LOT BETTER ON OXYGEN. Allergies ragweed pollen Allergy (Verified 10/04/18 04:13) Hives/Rash shellfish derived Allergy (Verified 10/04/18 04:12) gout Home Medications: Albuterol Sulfate [Proair Respiclick] 2 puff IH QID PRN 10/04/18 Aspirin 81 mg PO DAILY 10/04/18 Aspirin/Acetaminophen/Caffeine [Excedrin Extra Strength Caplet] 1 tab PO DAILY PRN 10/04/18 Biotin 1 tab PO BEDTIME 10/04/18 Cholecalciferol (Vitamin D3) [D3-50] 1 cap PO DAILY 10/04/18 Clopidogrel Bisulfate [Clopidogrel] 75 mg PO DAILY 10/04/18 Furosemide [Lasix*] 20 mg PO DAILY 10/04/18 Gabapentin 300 mg PO BEDTIME 10/04/18 Ipratropium [place] 2 spray IH QID 10/04/18 L.acidoph,Paracasei, B.lactis [Probiotic] 1 tab PO DAILY 10/04/18 Losartan/Hydrochlorothiazide [Losartan-Hctz 50-12.5 mg Tab] 1 tab PO DAILY 10/04 Metoprolol Succinate [Toprol Xl] 25 mg PO BID 10/04/18 Olopatadine HCl [Patanase] 2 spray IH BID 10/04/18 Pantoprazole [Protonix Tab*] 40 mg PO DAILY 10/04/18 Pravastatin Sodium 40 mg PO BEDTIME 10/04/18 Tramadol HCl [Ultram] 50 mg PO TID PRN 10/04/18 Ubidecarenone [Co Q-10] 1 cap PO DAILY 10/04/18 - Past Medical/Surgical History Has patient received pneumonia vaccine in the past: Yes Diabetic: No -: gerd -: diverticulosis -: diverticulitis -: barrets esophogus -: ulcerative colitis -: arthritis -: osteopenia -: CHF -: HTN -: appy -: hernia repair x2 -: pacemaker/ defibrillator -: heart stent -: kyphoplasty to back -: lithotripsy - Family History Mother -: Cancer Notes: mom and dad had cancer - Social History Smoking Status: Former smoker Alcohol use: No CD- Drugs: No Caffeine use: Yes Place of Residence: Home Review of Systems 10-point ROS is otherwise unremarkable General: Weakness, Malaise Respiratory: Cough, Shortness of Breath Cardiovascular: Orthopnea, Paroxysmal Noc. Dyspnea Physical Examination - Vital Signs Temperature: 98.3 F Blood Pressure: 122/72 Pulse: 84 Respirations: 23 Pulse Ox (%): 93 - Physical Exam General: Alert, Mild distress, Moderate distress, Other (KYPHOTIC) HEENT: Atraumatic, PERRLA, Mucous membr. moist/pink, EOMI, Sclerae nonicteric Neck: Supple, 2+ carotid pulse no bruit, No LAD, Without JVD or thyroid abnormality Respiratory: Clear to auscultation bilaterally, Normal air movement Cardiovascular: Regular rate/rhythm, Normal S1 S2 Gastrointestinal: Normal bowel sounds, No tenderness Musculoskeletal: No tenderness Integumentary: No rashes Neurological: Normal gait, Normal speech, Normal strength at 5/5 x4 extr, Normal tone, Normal affect Lymphatics: No axilla or inguinal lymphadenopathy - Studies Laboratory Data (last 24 hrs) 10/03/18 22:35: PT 14.7 H, INR 1.24 10/03/18 22:35: WBC 11.0 H, Hgb 14.9, Hct 45.2, Plt Count 176 10/03/18 22:35: Sodium 140, Potassium 4.0, BUN 28 H, Creatinine 1.38 H, Glucose 123 H, Magnesium 1.9 D, Total Bilirubin 0.4, AST 26, ALT 11 L, Alkaline Phosphatase 83 Assessment and Plan - Problems (Diagnosis) (1) Respiratory distress Current Visit: Yes Status: Chronic Plan: MULTIFACTORIAL. HE HAS FIBROSIS ALREADY. CXR IS REPORTED TO HAVE CHF AND OR PNEUMONIA. CLIINICALLY HE HAS NO SYMPTOMS OF PNEUMONIA. PROCALCITONIN IS NORMAL. BNP IS MILD HIGH. LASIX IV BID ECHO WITH DOPPLER. IV STEROIDS. CONSULT DR. MEDINA. HE WILL APPLY FOR ONE OF THE NEW PULMONARY FIBROSIS DRUGS. PROGNOSIS GUARDED. CALLED THE . - Advance Directives Does patient have a Living Will: Yes Does patient have a Durable POA for Healthcare: Yes
[2018-10-04] MEDS: IPRATROPIUM BROMIDE IH SCH ×3 (13:00→20:06)
[2018-10-04] MEDS: ASPIRIN 81 MG CHEWABLE TABLET PO SCH (13:48)
[2018-10-04] MEDS: LACTOBACILLUS/ACIDOPHILUS TAB PO SCH (13:49)
[2018-10-04] MEDS: PANTOPRAZOLE 40MG TABLET PO SCH (13:49)
[2018-10-04] MEDS: CLOPIDOGREL 75 MG TABLET PO SCH (13:49)
--- NOTE | 2018-10-04 14:27 | RAD REPORT ---
EXAM DESCRIPTION: CT - Thorax Wo Con CLINICAL HISTORY: Chest pain HYPOXIA COMPARISON: Chest For Pe Angio dated 05/07/2018; Chest Single View dated 10/03/2018 FINDINGS: Emphysematous and fibrotic baseline changes are noted with moderate bilateral alveolar aquilino g opacities, greater on the right. Most likely this represents bilateral pneumonia or pulmonary edema . The heart is upper limit normal in size with pacemaker wires present. No pleural or pericardial flu id. No pneumothorax. No axillary, mediastinal or hilar adenopathy. No fracture or aggressive marrow lesion. Moderate to large hiatal hernia is present considered contai berenice significant portion of pancreas. All CT scans are performed using dose optimization technique as appropriate and may include automated exposure control or mA/KV adjustment according to patient size. IMPRESSION: Extensive bilateral alveolar lung opacities are noted, greater on the right suggesting p neumonia or pulmonary edema. Findings are superimposed on emphysema/pulmonary fibrosis pattern.
[2018-10-04] MEDS: METOPROLOL XL 25 MG TAB PO SCH ×2 (14:32→20:11)
[2018-10-04] MEDS: VITAMIN D 1000 UNIT TAB PO SCH (14:32)
[2018-10-04] MEDS: LOSARTAN/HCTZ 50-12.5 PO SCH (14:32)
[2018-10-04] MEDS ORDERED: RIVAROXABAN 10 MG TABLET PO SCH (17:00)
[2018-10-04] MEDS: ATORVASTATIN 10 MG TAB PO SCH (20:09)
[2018-10-04] MEDS: GABAPENTIN 300 MG CAP PO SCH (20:09)
[2018-10-04] MEDS ORDERED: HOME MED 1 EA UNK (Pravastatin Sodium [Pravastatin Sodium] 40 MG) PO SCH (21:00)
[2018-10-04] MEDS ORDERED: Levofloxacin500mg IV 500 MG/100 ML BAG IV SCH (21:00)
[2018-10-05] MEDS: METHYLPREDNISOLONE 40 MG INJ IV SCH ×2 (05:17→12:00)
[2018-10-05] MEDS: VITAMIN D 1000 UNIT TAB PO SCH (08:19)
[2018-10-05] MEDS: PANTOPRAZOLE 40MG TABLET PO SCH (08:19)
[2018-10-05] MEDS: CEFTRIAXONE/SWI 1gm 1 GM/10 ML SYR IVP SCH ×2 (08:19→21:25)
[2018-10-05] MEDS: CLOPIDOGREL 75 MG TABLET PO SCH (08:19)
[2018-10-05] MEDS: LACTOBACILLUS/ACIDOPHILUS TAB PO SCH (08:19)
[2018-10-05] MEDS: FUROSEMIDE 20 MG/ 2ML VIAL IV SCH ×2 (08:19→16:48)
[2018-10-05] MEDS: ASPIRIN 81 MG CHEWABLE TABLET PO SCH (08:19)
[2018-10-05] MEDS: IPRATROPIUM BROMIDE IH SCH ×4 (08:20→21:00)
[2018-10-05] MEDS: UBIDECARENONE PO SCH (08:20)
--- NOTE | 2018-10-05 08:24 | RAD REPORT ---
EXAM DESCRIPTION: NM - Vent Perfusion VQ Scan - 10/05/2018 6:26 am CLINICAL HISTORY: elevated D Dimer, SOB COMPARISON: Thorax Wo Con dated 10/04/2018; Chest Single View dated 10/03/2018 TECHNIQUE: 13.9mCi Xe-133 gas inhaled and 7.4mCi Tc-MAA IV. Planar ventilation scan was performed in posterior projection after Xe-133 gas inhalation (wash-in, e quilibrium, and wash-out phases) followed by perfusion scan with Tc-MAA IV in multiple projections. Examination is correlated with recent chest radiograph. FINDINGS: Homogeneous ventilation is present with mild air trapping. Several subsegmental mismatched defects are present along the periphery of the lungs bilaterally. IMPRESSION: High probability of pulmonary thromboembolism. Findings were discussed with Dr. Chaidez 8:20 a.m. 10/05/2018 by telephone.
[2018-10-05] MEDS: LOSARTAN/HCTZ 50-12.5 PO SCH (08:27)
[2018-10-05] MEDS: METOPROLOL XL 25 MG TAB PO SCH ×2 (08:28→21:22)
[2018-10-05] MEDS ORDERED: HOME MED 1 EA UNK (Clopidogrel Bisulfate [Clopidogrel] 75 MG) PO SCH (09:00)
[2018-10-05] MEDS ORDERED: ACIDOPH PARACASEI B LACTIS PO SCH (09:00)
[2018-10-05] MEDS ORDERED: RIVAROXABAN 15 MG TABLET PO SCH (09:00)
[2018-10-05] MEDS ORDERED: CHOLECALCIFEROL PO SCH (09:00)
--- NOTE | 2018-10-05 11:46 | ECHO ---
HEIGHT: 5 ft 10 in WEIGHT: 208 lb 14.4 oz DATE OF STUDY: 10/05/[address]: Mikhail Chaidez MD 2-DIMENSIONAL: YES M.MODE: YES DOPPLER: YES COLOR FLOW: YES TDS: YES PORTABLE: DEFINITY: BUBBLE STUDY: DIAGNOSIS: DYSPNEA CARDIAC HISTORY: CATHERIZATION: YES SURGERY: NO PROSTHETIC VALVE: NO PACEMAKER: YES MEASUREMENTS (cm) DIASTOLIC (NORMALS) SYSTOLIC (NORMALS) IVSd (0.6-1.2) LA Diam (1.9-4.0) LVEF % LVIDd (3.5-5.7) LVIDs (2.0-3.5) %FS % LVPWd (0.6-1.2) Ao Diam 2.9 (2.0-3.7) 2 DIMENSIONAL ASSESSMENT: RIGHT ATRIUM: NORMAL LEFT ATRIUM: NORMAL RIGHT VENTRICLE: PACEMAKER CATHETER LEFT VENTRICLE: NORMAL TRICUSPID VALVE: NORMAL MITRAL VALVE: NORMAL PULMONIC VALVE: NORMAL AORTIC VALVE: NORMAL PERICARDIAL EFFUSION: NONE AORTIC ROOT: NORMAL LEFT VENTRICULAR WALL MOTION: NORMAL DOPPLER/COLOR FLOW: LIMITED STUDY. IMPAIRED LEFT VENTRICULAR RELAXATION. COMMENTS: . IMPAIRED LEFT VENTRICULAR EJECTION FRACTION. PACEMAKER IN RIGHT VENTRICULAR APEX. IMPAIRED LEFT VENTRICULAR RELAXATION. TECHNICALLY DIFFICULT STUDY. TECHNOLOGIST: YAYO DENT
--- NOTE | 2018-10-05 12:10 | P.CNS ---
Date of Consult: 10/05/18 Reason for Consult: Pulmonary fibrosis with possible pulmonary embolism Chief Complaint: Shortness of breath History of Present Illness: Patient is 78 years of age evaluate her med by [facility] complaining of progressive dyspnea and a chronic progressive cough he has been complaining of shortness of breath on mild exertion feels tired all the time with smoking a long time ago has a history of a pacemaker with AFib feels better V/Q scan high probability for thromboembolism Allergies ragweed pollen Allergy (Verified 10/04/18 04:13) Hives/Rash Home Medications: Albuterol Sulfate [Proair Respiclick] 2 puff IH QID PRN 10/04/18 Aspirin 81 mg PO DAILY 10/04/18 Aspirin/Acetaminophen/Caffeine [Excedrin Extra Strength Caplet] 1 tab PO DAILY PRN 10/04/18 Biotin 1 tab PO BEDTIME 10/04/18 Cholecalciferol (Vitamin D3) [D3-50] 1 cap PO DAILY 10/04/18 Clopidogrel Bisulfate [Clopidogrel] 75 mg PO DAILY 10/04/18 Furosemide [Lasix*] 20 mg PO DAILY 10/04/18 Gabapentin 300 mg PO BEDTIME 10/04/18 Ipratropium [place] 2 spray IH QID 10/04/18 L.acidoph,Paracasei, B.lactis [Probiotic] 1 tab PO DAILY 10/04/18 Losartan/Hydrochlorothiazide [Losartan-Hctz 50-12.5 mg Tab] 1 tab PO DAILY 10/04 Metoprolol Succinate [Toprol Xl] 25 mg PO BID 10/04/18 Olopatadine HCl [Patanase] 2 spray IH BID 10/04/18 Pantoprazole [Protonix Tab*] 40 mg PO DAILY 10/04/18 Pravastatin Sodium 40 mg PO BEDTIME 10/04/18 Tramadol HCl [Ultram] 50 mg PO TID PRN 10/04/18 Ubidecarenone [Co Q-10] 1 cap PO DAILY 10/04/18 - Past Medical/Surgical History Diabetic: No -: gerd -: diverticulosis -: diverticulitis -: barrets esophogus -: ulcerative colitis -: arthritis -: osteopenia -: CHF -: HTN -: appy -: hernia repair x2 -: pacemaker/ defibrillator -: heart stent -: kyphoplasty to back -: lithotripsy - Family History Mother Medical History: Cancer Notes: mom and dad had cancer - Social History Smoking Status: Former smoker Alcohol use: No CD- Drugs: No Caffeine use: Yes Place of Residence: Home Review of Systems 10-point ROS is otherwise unremarkable General: Weakness Respiratory: Shortness of Breath Physical Examination Temp Pulse Resp BP Pulse Ox 97.6 F 73 24 H 111/67 97 10/05/18 04:00 10/05/18 11:00 10/05/18 11:00 10/05/18 11:00 10/05/18 11:00 General: Alert, In no apparent distress, Oriented x3 HEENT: Atraumatic Neck: Supple Respiratory: Crackles/rales (Extensive fine bilateral inspiratory crackles) Cardiovascular: No edema, Regular rate/rhythm - Problems (1) Pulmonary fibrosis Current Visit: Yes Status: Acute Plan: Patient is 78 years of age admitted with progressive dyspnea and a cough he has idiopathic pulmonary fibrosis probably had an exacerbation due to thromboembolism V/Q scan he is shows high probability patient has improved since admission pattern changer and repairer to p.o. prednisone continue with antibiotic he had an outpatient workup with pulmonary function testing and a trial of anti fibrotic therapy which will need to be pre approved patient has home oxygen continue with Rocephin cultures are negative vital signs stable (2) Pulmonary embolism Current Visit: Yes Status: Acute Plan: Patient has high probability V/Q scan agree with indefinite anticoagulation echocardiogram shows diastolic dysfunction patient on diuretics he has Lasix at home
[2018-10-05] MEDS: RIVAROXABAN 15 MG TABLET PO SCH (17:29)
[2018-10-05] MEDS: GABAPENTIN 300 MG CAP PO SCH (21:21)
[2018-10-05] MEDS: predniSONE 20 MG TAB PO SCH (21:23)
[2018-10-05] MEDS: ATORVASTATIN 10 MG TAB PO SCH (21:23)
--- NOTE | 2018-10-05 21:36 | P.PN ---
Subjective Date of Service: 10/05/18 Chief Complaint: Shortness of breath Subjective: Improving HE IS FEELING A LOT BETTER. DENIES CHEST PAIN. Review of Systems 10-point ROS is otherwise unremarkable General: Weakness, Malaise Physical Examination - Vital Signs Temperature: 97.6 F Blood Pressure: 119/69 Pulse: 78 Respirations: 19 Pulse Ox (%): 92 - Physical Exam General: Alert, Mild distress HEENT: Atraumatic, PERRLA, EOMI Neck: Supple, JVD not distended Respiratory: Diminished Cardiovascular: Regular rate/rhythm, Normal S1 S2 Gastrointestinal: Normal bowel sounds, No tenderness Musculoskeletal: No tenderness Integumentary: No rashes Neurological: Normal speech, Normal tone, Normal affect Lymphatics: No axilla or inguinal lymphadenopathy - Studies Medications List Reviewed: Yes Assessment And Plan - Current Problems (Diagnosis) (1) Respiratory distress Onset Date: 10/05/18 Current Visit: Yes Status: Chronic Plan: MULTIFACTORIAL. HE HAS FIBROSIS ALREADY. CXR IS REPORTED TO HAVE CHF AND OR PNEUMONIA. CLIINICALLY HE HAS NO SYMPTOMS OF PNEUMONIA. PROCALCITONIN IS NORMAL. BNP IS MILD HIGH. LASIX IV BID ECHO WITH DOPPLER. IV STEROIDS. CONSULT DR. MEDINA. HE WILL APPLY FOR ONE OF THE NEW PULMONARY FIBROSIS DRUGS. PROGNOSIS GUARDED. CALLED THE . HE HAS PE ALSO ON VQ SCAN I CALLED AND ORDERED XARELTO BID STOP ASPRIN RESUME PLAVIX FOR STENTS. (2) Congestive cardiomyopathy Current Visit: Yes Status: Chronic Plan: LAST EF WAS VIV PER HIS RETREADER (3) Pulmonary embolism Current Visit: Yes Status: Acute Plan: SMALL MULTIPLE FOCI HIGH PROBABILITY FOR PE ON VQ SCAN. Qualifiers: Pulmonary embolism type: other Chronicity: acute (4) Pulmonary fibrosis Current Visit: Yes Status: Chronic Plan: DR. MEDINA ON THE CASE HE ADVISES STEROIDS AND SOME NEW MEDS.
[2018-10-06 06:27] LABS: Absolute Lymphocytes (CBC) 0.9 K/uL (0.7-4.9); Absolute Monocytes 0.6 K/uL (0.1-1.3); Absolute Neutrophil 11.4 K/uL (1.8-8.0); Eosinophils % 0.1 % (0-4.4); Hematocrit 42.9 % (39.6-49.0); Lymphocytes % 6.8 % (15.3-44.8); MPV 9.3 fL (7.6-11.3); Monocytes % 4.8 % (3.3-12.3); RBC Red Blood Cell Count 4.92 M/uL (4.33-5.43)
[2018-10-06 06:41] LABS: Potassium 4.2 mmol/L (3.5-5.1)
[2018-10-06 08:45] VITALS: O2SAT 94
[2018-10-06] MEDS: IPRATROPIUM BROMIDE IH SCH (09:00)
[2018-10-06] MEDS: UBIDECARENONE PO SCH (09:00)
[2018-10-06] MEDS: CEFTRIAXONE/SWI 1gm 1 GM/10 ML SYR IVP SCH (10:08)
[2018-10-06] MEDS: VITAMIN D 1000 UNIT TAB PO SCH (10:09)
[2018-10-06] MEDS: CLOPIDOGREL 75 MG TABLET PO SCH (10:09)
[2018-10-06] MEDS: METOPROLOL XL 25 MG TAB PO SCH (10:09)
[2018-10-06] MEDS: predniSONE 20 MG TAB PO SCH (10:09)
[2018-10-06] MEDS: LACTOBACILLUS/ACIDOPHILUS TAB PO SCH (10:09)
[2018-10-06] MEDS: RIVAROXABAN 15 MG TABLET PO SCH ×2 (10:09→17:00)
[2018-10-06] MEDS: FUROSEMIDE 20 MG/ 2ML VIAL IV SCH ×2 (10:10→16:59)
[2018-10-06] MEDS: LOSARTAN/HCTZ 50-12.5 PO SCH (10:10)
--- NOTE | 2018-10-06 10:14 | RAD REPORT ---
EXAM DESCRIPTION: CT - Chest For Pe Angio - 10/06/2018 10:04 am CLINICAL HISTORY: Chest pain. HYPOXIA COMPARISON: Thorax Wo Con dated 10/04/2018; Vent Perfusion VQ Scan dated 10/05/2018 TECHNIQUE: CT angiogram of the pulmonary arteries was performed with MIP. All CT scans are performed using dose optimization technique as appropriate and may include automated exposure control or mA/KV adjustment according to patient size. FINDINGS: No large proximal pulmonary thromboembolism is seen. The distal branches of the pulmonary arterial tree are mildly limited in assessment due to significant airspace disease and respiratory mo tion. No acute aortic finding demonstrated. Pacemaker wires are present. Extensive bilateral pulmonary opacities are noted likely representing a combination underlying pulmon silvia fibrosis and alveolar pulmonary edema or pneumonia superimposed on fibrotic changes. No significant pericardial or pleural fluid. No concerning bony finding. IMPRESSION: No evidence of pulmonary thromboembolism. The very distal branches are slightly limited in assessment. However, no significant PE is seen on this study. Fibrotic changes are present throughout both lungs with superimposed alveolar opacities bilaterally s uggesting pneumonia or pulmonary edema.
[2018-10-06] MEDS: PANTOPRAZOLE 40MG TABLET PO SCH (10:15)
--- NOTE | 2018-10-06 12:58 | P.DS ---
Admission Date: 10/04/18 Discharge Date: 10/06/18 Disposition: ROUTINE DISCHARGE Discharge Condition: FAIR Reason for Admission: Shortness of breath - Problems (1) Respiratory distress Onset Date: 10/05/18 Current Visit: Yes Status: Chronic (2) Congestive cardiomyopathy Current Visit: Yes Status: Chronic (3) Pulmonary embolism Current Visit: Yes Status: Acute Qualifiers: Pulmonary embolism type: other Chronicity: acute (4) Pulmonary fibrosis Current Visit: Yes Status: Chronic Brief History of Present Illness: MR. PEREZ HAS KNOWN PULMONARY FIBROSIS, HE IS GRADUALLY GETTING WORSE. HE IS SUPPOSED TO SEE DR. MEDINA BUT ENDS UP IN ER HE GOT WORSE IN DYSPNEA. HE HAS NO CHEST PAIN, NO MORE COUGHING THEN USUAL AND NO FEVER. HE FEELS LOT BETTER ON OXYGEN. MR. PEREZ COMES FOR DYSPNEA. HE HAS WORSENED PULMONARY FIBROSIS. DR MEDINA WILL FU. HIS VQ SCAN SHOWED PE BUT I WAS IN DOUBT SO I ORDERED CT ANGIO AFTER HE CALRFIED THAT HE IS NOT REALLY ALLERGIC TO SHELLFISH BUT IT JUST GIVES HIM GOUT. CT ANGIO DID NOT SHOW PE. Vital Signs/Physical Exam: Temp Pulse Resp BP Pulse Ox 97.6 F 66 18 126/74 94 10/06/18 08:00 10/06/18 10:10 10/06/18 08:00 10/06/18 10:10 10/06/18 08:00 General: Mild distress HEENT: Atraumatic, PERRLA, EOMI Neck: Supple, JVD not distended Respiratory: Clear to auscultation bilaterally, Normal air movement Cardiovascular: Regular rate/rhythm, Normal S1 S2 Gastrointestinal: Normal bowel sounds, No tenderness Musculoskeletal: No tenderness Integumentary: No rashes Neurological: Normal speech, Normal tone, Normal affect Lymphatics: No axilla or inguinal lymphadenopathy Laboratory Data at Discharge: WBC 12.9 K/uL (4.3-10.9) H D 10/06/18 06:02 Hgb 14.1 g/dL (13.6-17.9) 10/06/18 06:02 Hct 42.9 % (39.6-49.0) 10/06/18 06:02 Plt Count 186 K/uL (152-406) 10/06/18 06:02 PT 14.7 SECONDS (9.5-12.5) H 10/03/18 22:35 INR 1.24 10/03/18 22:35 Sodium 139 mmol/L (136-145) 10/06/18 06:02 Potassium 4.2 mmol/L (3.5-5.1) 10/06/18 06:02 BUN 36 mg/dL (7-18) H 10/06/18 06:02 Creatinine 1.18 mg/dL (0.55-1.3) 10/06/18 06:02 Glucose 158 mg/dL (74-106) H 10/06/18 06:02 Magnesium 1.9 mg/dL (1.8-2.4) D 10/03/18 22:35 Total Bilirubin 0.4 mg/dL (0.2-1.0) 10/03/18 22:35 AST 26 U/L (15-37) 10/03/18 22:35 ALT 11 U/L (12-78) L 10/03/18 22:35 Alkaline Phosphatase 83 U/L (45-117) 10/03/18 22:35 Troponin I < 0.02 ng/mL (0.0-0.045) 10/04/18 10:55 Home Medications: Albuterol Sulfate [Proair Respiclick] 2 puff IH QID PRN 10/04/18 Aspirin 81 mg PO DAILY 10/04/18 Aspirin/Acetaminophen/Caffeine [Excedrin Extra Strength Caplet] 1 tab PO DAILY PRN 10/04/18 Biotin 1 tab PO BEDTIME 10/04/18 Cholecalciferol (Vitamin D3) [D3-50] 1 cap PO DAILY 10/04/18 Clopidogrel Bisulfate [Clopidogrel] 75 mg PO DAILY 10/04/18 Furosemide [Lasix*] 20 mg PO DAILY 10/04/18 Gabapentin 300 mg PO BEDTIME 10/04/18 Ipratropium [place] 2 spray IH QID 10/04/18 L.acidoph,Paracasei, B.lactis [Probiotic] 1 tab PO DAILY 10/04/18 Losartan/Hydrochlorothiazide [Losartan-Hctz 50-12.5 mg Tab] 1 tab PO DAILY 10/04 Metoprolol Succinate [Toprol Xl] 25 mg PO BID 10/04/18 Olopatadine HCl [Patanase] 2 spray IH BID 10/04/18 Pantoprazole [Protonix Tab*] 40 mg PO DAILY 10/04/18 Pravastatin Sodium 40 mg PO BEDTIME 10/04/18 Tramadol HCl [Ultram] 50 mg PO TID PRN 10/04/18 Ubidecarenone [Co Q-10] 1 cap PO DAILY 10/04/18 predniSONE [Deltasone] 20 mg PO DAILY #30 tab 10/05/18 levoFLOXacin [Levaquin*] 500 mg PO DAILY #7 tab 10/06/18 New Medications: levoFLOXacin [Levaquin*] 500 mg PO DAILY #7 tab predniSONE [Deltasone] 20 mg PO DAILY #30 tab Patient Discharge Instructions: DO NOT MANAGER LOCATION XARELTO WE DON'T NEED ANY LONGER. I WILL SEE YOU IN OFFICE IN ONE WEEK.
[2018-10-06 13:11] VITALS: BP 156/85; TEMP 97.7
== END 2018-10-06 18:50 | disposition home or self-care (01) | DRG 197 ==
LOC: ER 22:00 → ERHOLD 10-04 02:43 → 4TH 10-04 03:11 → 3RD-ICU 10-04 05:59 → 2ND 10-05 11:40
PROVIDERS: ADMIT Internal Medicine; ATTEND Internal Medicine
DX: J84.112 Idiopathic pulmonary fibrosis (principal); I42.0 Dilated cardiomyopathy; Z87.891 Personal history of nicotine dependence; R06.00 Dyspnea, unspecified
CPT/HCPCS: 36415; 71045; 71250; 71275; 78582; 80048; 80076; 81003; 82805; 82962; 83605; 83735; 83880; 84145; 84484; 85025; 85379; 85610; 87040; 93005; 93306; 94760; 96365; 96367; 99285; A9540; A9558; J0696; J1940; J2920; J7512; Q9967

== ENCOUNTER 2019-01-19 18:52 | Observation (INO) | payer OTHER ==
--- OUTSIDE RECORDS SUMMARY | 2019-01-19 18:55 | XMS REPORT | Clinical Summary ---
:1940 Author Organization [facility] Address [address] [place] [address] Care Team Providers Name Role Phone Mikhail [...] GLUTATHIONE MISC 2 capsules 0 Active daily. losartan-hydrochloro TAKE ONE (1) 1 03/28/2018 Active [...] BY MOUTH ONCE A DAY AT BEDTIME. pantoprazole TAKE ONE (1) 90 tablet 1 11/09/2018 Active (PROTONIX) 40 MG EC TABLET(S) BY tablet MOUTH ONCE A DAY. valsartan-hydrochlor Take 1 tablet 0 Discontinued othiazide [...] mg total) 8 tablet by mouth daily. pantoprazole TAKE ONE (1) 90 tablet 2 02/18/2018 Discontinued (PROTONIX) 40 MG EC TABLET(S) BY 9 tablet MOUTH ONCE A DAY. denosumab (PROLIA) Inject 1 Stick 0 Discontinued 60 mg/mL syringe under the 8 syringe skin. Active Problems Problem Noted Date Ischemic cardiomyopathy 11/26/2016 Hood esophagus Colon polyp Diverticulosis GERD (gastroesophageal reflux disease) Ulcerative colitis Epigastric pain Encounters Date Type Specialty Care Team Description 01/19/2019 Emergency Emergency Medicine [facility] Shortness of breath MD Calli (Primary Dx) 11/09/2018 Refill Gastroenterology Sly Nuñez MD 11/05/2018 Hospital Encounter Radiology Juliet, Abnormal x-ray of [place] lung MD Nya 10/14/2018 Transcribe Orders Access Chung, Abnormal x-ray of [place] lung (Primary Dx) MD Nya 10/13/2018 Lab Lab Nya Chung Pain in joint, C., multiple sites (Primary Dx) 06/17/2018 Documentation Gastroenterology Sera Morillo MA 05/25/2018 Office Visit Gastroenterology Sly Nuñez 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 (Primary Dx); MD Amadou Gastroesophageal reflux disease, esophagitis presence not specified 05/25/2018 Documentation Gastroenterology Sera Morillo MA 02/18/2018 Refill Gastroenterology Sly Nuñez MD after 01/18/2018 Family History Medical History Relation Name Comments [...] Vital Sign Reading Time Taken Blood Pressure 141/73 01/19/2019 3:06 PM CDT Pulse 69 01/19/2019 3:06 PM CDT Temperature 36.7 C (98.1 F) 01/19/2019 3:06 PM CDT Respiratory Rate 22 01/19/2019 3:06 PM CDT Oxygen Saturation 94% 01/19/2019 3:06 PM CDT Inhaled Oxygen Concentration - - Weight 97.1 kg (214 lb) 05/25/2018 1:34 PM CDT Height 180.3 cm (5' 11") 01/19/2019 3:07 PM CDT Body Mass Index 29.85 11/26/2016 10:22 AM CDT Plan of Treatment Health Maintenance Due Date Last Done Comments SHINGLES VACCINES (#1) 1989 65+ PNEUMOCOCCAL VACCINE (1 of 2 - PCV13) 2004 PNEUMOCOCCAL POLYSACCHARIDE VACCINE AGE 65 AND OVER 2004 INFLUENZA VACCINE 04/01/2019 Implants Implanted Type Area Inside Sales Engineer Device Shelf Model / Identifier Expiration Serial / Date Lot Brendatazack Butler G Model 0295 59 Cm Df4 Tachy Lead - [id number] Cardiac Pacing N/A: [place] 07/04/2018 0295 / Implanted: 11/26/2016 (Quantity not on file) Leads or N/A [employer] [id number] / Electrodes or [id number] Accessories Acuity X 4 - [id number] Cardiac Pacing N/A: [place] 01/14/2018 4671 / Implanted: 11/26/2016 (Quantity not on file) Leads or N/A [employer]- [id number] / Electrodes or [id number] Accessories Ingevity Mri Pacing Lead 45cm - [id number] Cardiac Pacing N/A: [place] 7740 45 / Implanted: 11/26/2016 (Quantity not on file) Leads or N/A [employer] [id number] / Electrodes or [id number] Accessories Dynagen Fitting Room Supervisor ICD [place] [id number] / Implanted: Qty: 1 on 11/26/2016 by Arya Pratt MD [employer] [id number] / [id number] Procedures Procedure Name Priority Date/Time Associated Comments Diagnosis CT CHEST WO CONTRAST Routine 11/05/2018 2:00 Abnormal x-ray of Results for this PM DINING MANAGER lung procedure are in the results section. LEAH TITER Routine 10/13/2018 4:02 Results for this PM DINING MANAGER procedure are in the results section. ANTI-NEUTROPHILIC Routine 10/13/2018 4:02 Pain in joint, Results for this CYTOPLASMIC ABS PANEL PM DINING MANAGER multiple sites procedure are in the results section. RHEUMATOID FACTOR Routine 10/13/2018 4:02 Pain in joint, Results for this PM DINING MANAGER multiple sites procedure are in the results section. CREATINE KINASE, Routine 10/13/2018 4:02 Pain in joint, Results for this TOTAL (CPK) PM DINING MANAGER multiple sites procedure are in the results section. LEAH Routine 10/13/2018 4:02 Pain in joint, Results for this PM DINING MANAGER multiple sites procedure are in the results section. after 01/18/[address] Chest Wo Contrast (11/05/2018 2:00 PM DINING MANAGER) Specimen Narrative Performed At EXAMINATION: HM [facility] CT CHEST WO CONTRAST CLINICAL HISTORY: R91.8 Other nonspecific abnormal finding of lung field, r91.8 TECHNIQUE:Multiple axial images of the chest were obtained without intravenous contrast. High-resolution interstitial lung disease protocol was used including supine/prone and inspiratory/expiratory acquisitions. The lack of intravenous contrast reduces the sensitivity of detecting solid organ disease and evaluating vasculature. Sagittal and coronal computerized reformatted images were also obtained. CT imaging was performed with iterative reconstruction techniques and/or automated exposure control to reduce radiation dose. COMPARISON: None. FINDINGS: Marked diffuse pulmonary fibrosis is demonstrated with basilar predominance and relative sparing of the apices. This is marked by architectural distortion, peripheral reticulations, and traction bronchiectasis but without honeycombing. Also in the distribution of fibrosis with apical-basal gradient, note is made of faint groundglass opacities suggesting component of alveolitis. Sub-resolution fibrosis may also be contributing to the groundglass appearance. No confluent consolidation. Central airways are patent. Right hilar/perihilar calcified granulomas. A few borderline prominent mediastinal lymph nodes are mostly subcentimeter in short axis and nonspecific. No pleural or pericardial effusion. The heart is enlarged. Pacemakers are seen bilaterally with leads coursing to the right heart and coronary sinus. Marked coronary arterial calcifications. Tortuous and mildly calcified aorta is nonaneurysmal. There is moderate paraesophageal hiatal hernia containing tail of the pancreas. Scattered splenic and liver calcified granulomas. IMPRESSION: Extensive pulmonary fibrosis predominating in the lung bases without honeycombing. Concurrent faint groundglass opacities are present, and mixed fibrotic and cellular type NSIP should be considered. [facility]-[id number] Procedure Note [facility], Radiology Results Incoming - 11/05/2018 2:55 PM DINING MANAGER EXAMINATION: CT CHEST WO CONTRAST CLINICAL HISTORY: R91.8 Other nonspecific abnormal finding of lung field, r91.8 TECHNIQUE: Multiple axial images of the chest were obtained without intravenous contrast. High-resolution interstitial lung disease protocol was used including supine/prone and inspiratory/expiratory acquisitions. The lack of intravenous contrast reduces the sensitivity of detecting solid organ disease and evaluating vasculature. Sagittal and coronal computerized reformatted images were also obtained. CT imaging was performed with iterative reconstruction techniques and/or automated exposure control to reduce radiation dose. COMPARISON: None. FINDINGS: Marked diffuse pulmonary fibrosis is demonstrated with basilar predominance and relative sparing of the apices. This is marked by architectural distortion, peripheral reticulations, and traction bronchiectasis but without honeycombing. Also in the distribution of fibrosis with apical-basal gradient, note is made of faint groundglass opacities suggesting component of alveolitis. Sub- resolution fibrosis may also be contributing to the groundglass appearance. No confluent consolidation. Central airways are patent. Right hilar/perihilar calcified granulomas. A few borderline prominent mediastinal lymph nodes are mostly subcentimeter in short axis and nonspecific. No pleural or pericardial effusion. The heart is enlarged. Pacemakers are seen bilaterally with leads coursing to the right heart and coronary sinus. Marked coronary arterial calcifications. Tortuous and mildly calcified aorta is nonaneurysmal. There is moderate paraesophageal hiatal hernia containing tail of the pancreas. Scattered splenic and liver calcified granulomas. IMPRESSION: Extensive pulmonary fibrosis predominating in the lung bases without honeycombing. Concurrent faint groundglass opacities are present, and mixed fibrotic and cellular type NSIP should be considered. [facility]-[id number] Performing Organization Address [facility] Phone Number [address] [address] LEAH titer (10/13/2018 4:02 PM DINING MANAGER) Pathologist [facility] LEAH titer 1:160 (A) Not-Detected [facility] LEAH pattern Homogenous (A) Not-Detected [facility] LEAH titer 2 1:160 (A) Not-Detected [facility] LEAH pattern Spindle (A) Not-Detected [facility] Specimen Blood Performing Organization Address [facility] Phone Number [facility] DEPARTMENT OF PATHOLOGY AND [address] [place] [phone] [address] Anti-neutrophilic cytoplasmic Abs panel (10/13/2018 4:02 PM DINING MANAGER) Pathologist [facility] ANCA screen Negative Negative [facility] Specimen Blood Performing Organization Address [facility]/Zipcode Phone Number [facility] DEPARTMENT OF PATHOLOGY AND [address] [place] [phone] [address] Rheumatoid factor (10/13/2018 4:02 PM DINING MANAGER) [facility] Rheumatoid factor <10 0 - 13 IU/mL [facility] Specimen Plasma specimen Performing Organization Address [facility] Phone Number [facility] DEPARTMENT OF PATHOLOGY AND [address] [place] [phone] [address] LEAH (10/13/2018 4:02 PM DINING MANAGER) LEAH screen Positive (A) Negative [facility] Specimen Blood Performing Organization Address [facility] Phone Number [facility] DEPARTMENT OF PATHOLOGY AND [address] [place] [phone] GENOMIC MEDICINE [address] [address] Creatine kinase, total (CPK) (10/13/2018 4:02 PM DINING MANAGER) Creatine kinase 56 39 - 308 U/L [facility] Specimen Plasma specimen Performing Organization Address [facility] Phone Number [facility] DEPARTMENT OF PATHOLOGY AND [address] [place] [phone] [place] [phone] after 01/18/2018 [address] (Home) [place] [address]
[2019-01-19 19:26] LABS: Absolute Lymphocytes (CBC) 1.2 K/uL (0.7-4.9); Absolute Monocytes 0.6 K/uL (0.1-1.3); Absolute Neutrophil 5.8 K/uL (1.8-8.0); Basophils % 1.2 % (0-1.3); Eosinophils % 3.6 % (0-4.4); Hematocrit 41.4 % (39.6-49.0); Lymphocytes % 14.7 % (15.3-44.8); MPV 9.6 fL (7.6-11.3); Monocytes % 7.3 % (3.3-12.3); RBC Red Blood Cell Count 4.68 M/uL (4.33-5.43)
[2019-01-19 19:39] LABS: Protime INR 1.14
[2019-01-19 19:47] LABS: ALT/SGPT 12 U/L (12-78); AST/SGOT 19 U/L (15-37); Albumin 3.4 g/dL (3.4-5.0); Alkaline Phosphatase 65 U/L (45-117); BUN Blood Urea Nitrogen 17 mg/dL (7-18); Bicarbonate 32 mmol/L (21-32); Bilirubin Direct 0.2 mg/dL (0-0.2); Bilirubin Total 0.4 mg/dL (0.2-1.0); Glucose Level 137 mg/dL (74-106); Magnesium 2.1 mg/dL (1.8-2.4); NT PRO-BNP 624 pg/mL (<450); Potassium 3.9 mmol/L (3.5-5.1); Protein, Total 7.8 g/dL (6.4-8.2); Sodium Level 138 mmol/L (136-145); Troponin (Emerg Dept Use Only) < 0.02 ng/mL (0.0-0.045)
--- NOTE | 2019-01-19 19:54 | RAD REPORT ---
EXAM DESCRIPTION: RAD - Chest Single View - 01/19/2019 7:39 pm CLINICAL HISTORY: Dyspnea, shortness of breath COMPARISON: October 03, 2018 TECHNIQUE: AP portable chest image was obtained 1935 hours . FINDINGS: Lung volumes are low. Interstitial and alveolar opacification is present in both lung fiel ds much more pronounced in the mid and lower right lung field. This is a pattern similar to the Febru silvia study. Pacemaker is in place. Heart size is upper normal partially obscured by the lung parenchym al opacification. Upper lobe vasculature is prominent. Left-sided pacemaker is also present. No pneum othorax. No large pleural effusion. Right side mediastinum shows increased fullness similar to Februa ry. No acute bony abnormality seen. No acute aortic findings suspected. IMPRESSION: Bilateral interstitial and alveolar opacification but worse in the right lung field. Pattern is similar to the October study. Pneumonia is favored. An atypical presentation of failure o r cardiac decompensation certainly possible as well.
--- NOTE | 2019-01-19 20:04 | RAD REPORT ---
EXAM DESCRIPTION: CT - Chest For Pe Angio - 01/19/2019 7:56 pm CLINICAL HISTORY: , shortness of breath Chest pain, dyspnea COMPARISON: CT chest October 2018 TECHNIQUE: Dynamically enhanced 3 mm thick images of the chest were obtained during administration o f approximately 150mL Isovue 370 IV contrast. Coronal and oblique MIP reconstruction images were gene rated and reviewed. Exam utilizes a protocol to evaluate the pulmonary arterial tree. All CT scans are performed using dose optimization technique as appropriate and may include automated exposure control or mA/KV adjustment according to patient size. FINDINGS: No pulmonary emboli are identified. Motion limits far peripheral opacification. Pulmonary emboli are not suspected. The aorta as imaged shows no acute finding. No pericardial thickening or effusion. Aorta is tortuous similar to comparison. Patient has a baseline of interstitial fibrotic change. Numerous alveolar opacities and ground-glass opacities are present primarily in the mid and lower lung tejeda. Pattern is similar to prior imaging . In the acute clinical setting, pneumonia is favored. No pleural effusion or pleural thickening. No mediastinal or hilar suspicious masses. No chest wall masses or abnormal axillary lymphadenopathy. Cardiomegaly is present. No pericardial effusion. IMPRESSION: No pulmonary emboli identified. Extensive interstitial alveolar opacities believed to be a combination of fibrosis and superimposed p neumonia. Pattern is not substantially different from comparison. Significant cardiomegaly without pericardial thickening or effusion.
[2019-01-19] MEDS ORDERED: AZITHROMYCIN 500 MG INJ IVPB ONE (20:27)
[2019-01-19] MEDS ORDERED: CEFTRIAXONE/SWI 1gm 1 GM/10 ML SYR ONE (20:27)
[2019-01-19] MEDS ORDERED: NA CHLORIDE 0.9% 250 ML ONE (20:27)
[2019-01-19] MEDS ORDERED: METHYLPREDNISOLONE 125 MG INJ ONE (20:27)
--- NOTE | 2019-01-19 20:28 | EDPHYS ---
Physician Documentation [facility] Name: Zev Sahu Age: 78 yrs Sex: Male : 1940 Arrival Date: 01/19/2019 Time: 18:54 Bed 3 Private MD: Mikahil Chaidez V ED Physician Bobby Ramirez HPI: 01/19 20:23 This 78 yrs old Male presents to ER via Wheelchair with complaints of jr8 Abnormal Lab Results, Breathing Difficulty. 20:23 The patient has shortness of breath at rest, with light activity. Onset: The jr8 symptoms/episode began/occurred gradually, 2 day(s) ago. Duration: The symptoms are continuous. The patient's shortness of breath is aggravated by light activity, walking. Associated signs and symptoms: The patient has no apparent associated signs or symptoms. Severity of symptoms: At their worst the symptoms were moderate in the emergency department the symptoms are unchanged. It is unknown whether or not the patient has had similar symptoms in the past. The patient has been recently seen by a physician:. Patient with history of Pulmonary Fibrosis. Stated that he is on home oxygen and normally has shortness of breath but for the past few days has had increased work of breathing with any sort of exertion. PCP wrote for labs which came back with elevated DD. Ordered CT PE but insurance had not cleared it. Ultimately came here for worsening of condition to be further evaluated . Historical: - Allergies: 19:13 No Known Allergies; aj1 - Home Meds: 19:14 pantoprazole 40 mg Oral TbEC 1 tab once daily [Active]; losartan-hydrochlorothiazide aj1 50-12.5 mg Oral tab 1 tab once daily [Active]; pravastatin 40 mg Oral tab 1 tab once daily [Active]; clopidogrel 75 mg Oral tab 1 tab once daily [Active]; metoprolol succinate 25 mg Oral Tb24 1 tab twice a day [Active]; tramadol 50 mg Oral tab 1 tab daily [Active]; 19:19 Prolia 60 mg/mL subcutaneous syrg 1 mL every 6 mo [Active]; gabapentin 300 mg Oral cap aj1 1 cap daily [Active]; olopatadine 0.6 % nasal spry 2 sprays 2 times per day [Active]; ipratropium bromide 0.02 % inhalation soln [Active]; budesonide 3 mg oral CECX 2 caps once daily [Active]; Perforomist 20 mcg/2 mL inhalation nebu 2 mL 2 times per day [Active]; Albuterol Inhl as needed [Active]; prednisone 10 mg Oral tab once daily [Active]; alprazolam 0.25 mg Oral tab 1 tab at night [Active]; vit D3 daily [Active]; biotin oral oral daily [Active]; vit K2 daily [Active]; coq10 daily [Active]; probiotic daily [Active]; Miralax 17 gram Oral pwpk 1 packet 3 times a week [Active]; aspirin 81 mg Oral chew 1 tab once daily [Active]; Mucinex 600 mg oral Ta12 1 tab every 12 hours [Active]; - PMHx: 19:13 CHF; GERD; Hypertension; Kidney stones; Pacemaker; defibrillator; pulmonary fibrosis; aj1 - Immunization history:: Flu vaccine is not up to date. - Social history:: Smoking status: Patient/guardian denies using tobacco. - Ebola Screening: : Patient denies travel to an Ebola-affected area in the 21 days before illness onset. ROS: 20:23 Eyes: Negative for injury, pain, redness, and discharge, ENT: Negative for injury, jr8 pain, and discharge, Neck: Negative for injury, pain, and swelling, Cardiovascular: Negative for chest pain, palpitations, and edema, Abdomen/GI: Negative for abdominal pain, nausea, vomiting, diarrhea, and constipation, Back: Negative for injury and pain, MS/Extremity: Negative for injury and deformity, Skin: Negative for injury, rash, and discoloration, Neuro: Negative for headache, weakness, numbness, tingling, and seizure. 20:23 Respiratory: Positive for dyspnea on exertion, shortness of breath. Exam: 20:23 Eyes: Pupils equal round and reactive to light, extra-ocular motions intact. Lids and jr8 lashes normal. Conjunctiva and sclera are non-icteric and not injected. Cornea within normal limits. Periorbital areas with no swelling, redness, or edema. ENT: Nares patent. No nasal discharge, no septal abnormalities noted. Tympanic membranes are normal and external auditory canals are clear. Oropharynx with no redness, swelling, or masses, exudates, or evidence of obstruction, uvula midline. Mucous membranes moist. Neck: Trachea midline, no thyromegaly or masses palpated, and no cervical lymphadenopathy. Supple, full range of motion without nuchal rigidity, or vertebral point tenderness. No Meningismus. Cardiovascular: Regular rate and rhythm with a normal S1 and S2. No gallops, murmurs, or rubs. Normal PMI, no JVD. No pulse deficits. Abdomen/GI: Soft, non-tender, with normal bowel sounds. No distension or tympany. No guarding or rebound. No evidence of tenderness throughout. Back: No spinal tenderness. No costovertebral tenderness. Full range of motion. Skin: Warm, dry with normal turgor. Normal color with no rashes, no lesions, and no evidence of cellulitis. MS/ Extremity: Pulses equal, no cyanosis. Neurovascular intact. Full, normal range of motion. Neuro: Awake and alert, GCS 15, oriented to person, place, time, and situation. Cranial nerves II-XII grossly intact. Motor strength 5/5 in all extremities. Sensory grossly intact. Cerebellar exam normal. Normal gait. 20:23 Respiratory: mild respiratory distress is noted, Respirations: tachypnea, that is mild, Breath sounds: rales, that are mild, are located in both bases. Vital Signs: 19:00 BP 126 / 87; Pulse 82; Resp 42; Pulse Ox 77% on 2 lpm NC; Weight 92.08 kg; Height 5 ft. aj1 10 in. (177.80 cm); 19:05 Pulse 69; Resp 15; Pulse Ox 98% on Non-rebreather mask; aj1 20:01 BP 140 / 75; Pulse 67; Resp 18; Pulse Ox 98% on 3 lpm NC; Pain 0/10; aa1 20:31 BP 132 / 78; Pulse 66; Resp 20; Temp 97.8(O); Pulse Ox 98% on 3 lpm NC; Pain 0/10; aa1 21:23 BP 102 / 86; Pulse 66; Resp 20; Pulse Ox 98% on 3 lpm NC; Pain 0/10; aa1 22:30 BP 132 / 75; Pulse 65; Resp 18; Pulse Ox 96% on 3 lpm NC; Pain 0/10; aa1 23:23 BP 145 / 91; Pulse 65; Resp 16; Pulse Ox 97% on 3 lpm NC; Pain 0/10; aa1 19:00 Body Mass Index 29.13 (92.08 kg, 177.80 cm) aj1 MDM: 19:10 Patient medically screened. 20:25 Data reviewed: vital signs, nurses notes, lab test result(s), EKG, radiologic studies, [facility] CT scan, plain films. Data interpreted: Pulse oximetry: on 2L(s) per nasal canula, is 77 %. Interpretation: hypoxia. Plan: O2 by Mask applied. Counseling: I had a detailed discussion with the patient and/or guardian regarding: the historical points, exam findings, and any diagnostic results supporting the discharge/admit diagnosis, lab results, radiology results, the need for further work-up and treatment in the hospital. Physician consultation: Mikhail Chaidez MD was called at 20:26, Left message to call back. Could not get a hold of him . 01/19 19:11 Order name: Basic Metabolic Panel; Complete Time: 19:54 [facility] 01/19 19:11 Order name: CBC with Diff; Complete Time: 20:08 [facility] 01/19 19:11 Order name: LFT's; Complete Time: 19:54 [facility] 01/19 19:11 Order name: Magnesium; Complete Time: 19:54 [facility] 01/19 19:11 Order name: NT PRO-BNP; Complete Time: 19:54 [facility] 01/19 19:11 Order name: PT-INR; Complete Time: 19:54 [facility] 01/19 19:11 Order name: Troponin (emerg Dept Use Only); Complete Time: 19:54 [facility] 01/19 19:11 Order name: XRAY Chest (1 view); Complete Time: 20:08 01/19 19:11 Order name: EKG; Complete Time: 19:12 [facility] 01/19 19:11 Order name: CT Chest For PE Angio; Complete Time: 20:08 [facility] 01/19 20:11 Order name: Blood Culture Adult (2) aa1 01/19 19:11 Order name: Cardiac monitoring; Complete Time: 19:15 [facility] 01/19 19:11 Order name: EKG - Nurse/Tech; Complete Time: 19:15 01/19 19:11 Order name: IV Saline Lock; Complete Time: 19:15 [facility] 01/19 19:11 Order name: Labs collected and sent; Complete Time: 19:15 [facility] 01/19 19:11 Order name: O2 Per Protocol; Complete Time: 19:15 jr8 01/19 19:11 Order name: O2 Sat Monitoring; Complete Time: 19:14 8 Administered Medications: 20:31 Drug: SOLU-Medrol 125 mg Route: IVP; Site: left antecubital; aa1 21:31 Follow up: Response: No adverse reaction; Marked relief of symptoms aa1 20:45 Drug: Rocephin 1 grams Route: IV; Rate: calculated rate; Site: left antecubital; aa1 20:50 Follow up: IV Status: Completed infusion; IV Intake: 10ml aa1 20:50 Drug: Zithromax 500 mg Route: IVPB; Infused Over: 1 hrs; Site: right antecubital; aa1 21:50 Follow up: IV Status: Completed infusion; IV Intake: 250ml aa1 Disposition: 01/19/19 20:27 Hospitalization ordered by Mikhail Chaidez for Inpatient Admission. Preliminary diagnosis are Pneumonia due to other specified bacteria, Pulmonary fibrosis, unspecified, Acute and chronic respiratory failure with hypoxia. - Bed requested for Telemetry/MedSurg (Inpatient). - Status is Inpatient Admission. aa1 - Condition is Stable. - Problem is new. - Symptoms have improved. UTI on Admission? No Signatures: Dispatcher [employer] EDShanna Ng RN RN aj1 Trinity Oviedo RN RN aa1 Gigi Almanzar PA PA jr8 Tracie Foss RN RN cg Corrections: (The following items were deleted from the chart) 23:18 20:27 Hospitalization Ordered by Mikhail Chaidez MD for Inpatient Admission. Preliminary cg diagnosis is Pneumonia due to other specified bacteria; Pulmonary fibrosis, unspecified; Acute and chronic respiratory failure with hypoxia. Bed requested for Telemetry/MedSurg (Inpatient). Status is Inpatient Admission. Condition is Stable. Problem is new. Symptoms have improved. UTI on Admission? No. jr8 23:42 23:18 01/19/2019 20:27 Hospitalization Ordered by Mikhail Chaidez MD for Inpatient aa1 Admission. Preliminary diagnosis is Pneumonia due to other specified bacteria; Pulmonary fibrosis, unspecified; Acute and chronic respiratory failure with hypoxia. Bed requested for Telemetry/MedSurg (Inpatient). Status is Inpatient Admission. Condition is Stable. Problem is new. Symptoms have improved. UTI on Admission? No. cg
--- NOTE | 2019-01-19 20:28 | ER ---
Nurse's Notes [facility] Name: Zev Sahu Age: 78 yrs Sex: Male : 1940 Arrival Date: 01/19/2019 Time: 18:54 Bed 3 Private MD: Mikhail Chaidez V Diagnosis: Pneumonia due to other specified bacteria;Pulmonary fibrosis, unspecified;Acute and chronic respiratory failure with hypoxia Presentation: 01/19 19:00 Presenting complaint: Patient states: Shortness of breath, leg swelling. Patient had aj1 labs drawn on Friday, was told that his D-Dimer was elevated and to come to the hospital for a CT, but could not get insurance approval so he left before he got the CT. Patient appears distressed, tachypneic. Os sat 77% on 2L nc. Transition of care: patient was not received from another setting of care. Onset of symptoms was January 19, 2019. Risk Assessment: Do you want to hurt yourself or someone else? Patient reports no desire to harm self or others. Initial Sepsis Screen: Does the patient meet any 2 criteria? No. Patient's initial sepsis screen is negative. Does the patient have a suspected source of infection? No. Patient's initial sepsis screen is negative. Care prior to arrival: None. 19:00 Acuity: ANITHA 2 aj1 19:11 Method Of Arrival: Wheelchair aj1 Triage Assessment: 19:00 General: Appears distressed, uncomfortable, Behavior is cooperative, anxious. Pain: aj1 Denies pain. Neuro: Level of Consciousness is awake, alert, obeys commands, Oriented to person, place, time, situation. Cardiovascular: Patient's skin is warm and dry. Respiratory: Reports shortness of breath at rest Airway is patent Respiratory effort is even, labored, Respiratory pattern is regular, tachypnea Onset: The symptoms/episode began/occurred suddenly, the patient has moderate shortness of breath. Historical: - Allergies: 19:13 No Known Allergies; aj1 - Home Meds: 19:14 pantoprazole 40 mg Oral TbEC 1 tab once daily [Active]; losartan-hydrochlorothiazide aj1 50-12.5 mg Oral tab 1 tab once daily [Active]; pravastatin 40 mg Oral tab 1 tab once daily [Active]; clopidogrel 75 mg Oral tab 1 tab once daily [Active]; metoprolol succinate 25 mg Oral Tb24 1 tab twice a day [Active]; tramadol 50 mg Oral tab 1 tab daily [Active]; 19:19 Prolia 60 mg/mL subcutaneous syrg 1 mL every 6 mo [Active]; gabapentin 300 mg Oral cap aj1 1 cap daily [Active]; olopatadine 0.6 % nasal spry 2 sprays 2 times per day [Active]; ipratropium bromide 0.02 % inhalation soln [Active]; budesonide 3 mg oral CECX 2 caps once daily [Active]; Perforomist 20 mcg/2 mL inhalation nebu 2 mL 2 times per day [Active]; Albuterol Inhl as needed [Active]; prednisone 10 mg Oral tab once daily [Active]; alprazolam 0.25 mg Oral tab 1 tab at night [Active]; vit D3 daily [Active]; biotin oral oral daily [Active]; vit K2 daily [Active]; coq10 daily [Active]; probiotic daily [Active]; Miralax 17 gram Oral pwpk 1 packet 3 times a week [Active]; aspirin 81 mg Oral chew 1 tab once daily [Active]; Mucinex 600 mg oral Ta12 1 tab every 12 hours [Active]; - PMHx: 19:13 CHF; GERD; Hypertension; Kidney stones; Pacemaker; defibrillator; pulmonary fibrosis; aj1 - Immunization history:: Flu vaccine is not up to date. - Social history:: Smoking status: Patient/guardian denies using tobacco. - Ebola Screening: : Patient denies travel to an Ebola-affected area in the 21 days before illness onset. Screenin:05 Abuse screen: Denies threats or abuse. Denies injuries from another. Nutritional aa1 screening: No deficits noted. Tuberculosis screening: No symptoms or risk factors identified. Fall Risk None identified. Assessment: 19:05 General: Appears in no apparent distress. comfortable, Behavior is calm, cooperative, aa1 appropriate for age. Pain: Denies pain. Neuro: Level of Consciousness is awake, alert, obeys commands, Oriented to person, place, time, situation, Moves all extremities. Speech is normal. Cardiovascular: Denies chest pain, diaphoresis, nausea, palpitations, Heart tones S1 S2 present Capillary refill < 3 seconds Clubbing of nail beds is absent JVD is absent Patient's skin is warm and dry. Rhythm is regular. Respiratory: Reports shortness of breath at rest Airway is patent Respiratory effort is pursed lip, Respiratory pattern is tachypnea Breath sounds are clear bilaterally. the patient has moderate shortness of breath. GI: No signs and/or symptoms were reported involving the gastrointestinal system. : No signs and/or symptoms were reported regarding the genitourinary system. EENT: No signs and/or symptoms were reported regarding the EENT system. Derm: Skin is intact. Musculoskeletal: Circulation, motion, and sensation intact. Capillary refill < 3 seconds, Swelling present in right foot, left foot, right leg and left leg. 20:01 Reassessment: Patient appears in no apparent distress at this time. Patient and/or aa1 family updated on plan of care and expected duration. Pain level reassessed. Patient is alert, oriented x 3, equal unlabored respirations, skin warm/dry/pink. Pt back from CT at this time. 21:00 Reassessment: Patient appears in no apparent distress at this time. Patient and/or aa1 family updated on plan of care and expected duration. Pain level reassessed. Patient is alert, oriented x 3, equal unlabored respirations, skin warm/dry/pink. Awaiting admission to hospital. 22:00 Reassessment: Patient appears in no apparent distress at this time. Patient and/or aa1 family updated on plan of care and expected duration. Pain level reassessed. Patient is alert, oriented x 3, equal unlabored respirations, skin warm/dry/pink. Provider awaiting return phone call from Dr. Chaidez for admission. 23:27 Reassessment: Patient appears in no apparent distress at this time. Patient and/or aa1 family updated on plan of care and expected duration. Pain level reassessed. Patient is alert, oriented x 3, equal unlabored respirations, skin warm/dry/pink. Report given to CAROLYN Ward. Vital Signs: 19:00 BP 126 / 87; Pulse 82; Resp 42; Pulse Ox 77% on 2 lpm NC; Weight 92.08 kg; Height 5 ft. aj1 10 in. (177.80 cm); 19:05 Pulse 69; Resp 15; Pulse Ox 98% on Non-rebreather mask; aj1 20:01 BP 140 / 75; Pulse 67; Resp 18; Pulse Ox 98% on 3 lpm NC; Pain 0/10; aa1 20:31 BP 132 / 78; Pulse 66; Resp 20; Temp 97.8(O); Pulse Ox 98% on 3 lpm NC; Pain 0/10; aa1 21:23 BP 102 / 86; Pulse 66; Resp 20; Pulse Ox 98% on 3 lpm NC; Pain 0/10; aa1 22:30 BP 132 / 75; Pulse 65; Resp 18; Pulse Ox 96% on 3 lpm NC; Pain 0/10; aa1 23:23 BP 145 / 91; Pulse 65; Resp 16; Pulse Ox 97% on 3 lpm NC; Pain 0/10; aa1 19:00 Body Mass Index 29.13 (92.08 kg, 177.80 cm) aj1 ED Course: 18:54 Patient arrived in ED. mr 18:54 Mikhail Chaidez MD is Private Physician. mr 19:00 Oxygen administration via nasal cannula \T\ 3L/min Response to oxygen therapy: symptoms aa1 improved. 19:00 Arm band placed on Patient placed in an exam room, Patient triaged in ER bed 3. aj1 19:05 Patient has correct armband on for positive identification. Placed in gown. Bed in low aa1 position. Call light in reach. personnel monitor on. Pulse ox on. NIBP on. Warm blanket given. 19:10 Gigi Almanzar PA is PHCP. jr8 19:10 Bobby Ramirez MD is Attending Physician. jr8 19:10 Initial lab(s) drawn, by ED staff, sent to lab. Inserted saline lock: 20 gauge in left aa1 antecubital area, using aseptic technique. ,using aseptic technique. By CAROLYN Fiore Blood collected. 19:13 Triage completed. aj1 19:15 EKG done, by ED staff, reviewed by Gigi ZELAYA. ag4 19:19 Trinity Oviedo RN is Primary Nurse. aa1 19:40 XRAY Chest (1 view) In Process Unspecified. EDMS 19:56 CT Chest For PE Angio In Process Unspecified. EDMS 20:25 Inserted saline lock: 20 gauge in right antecubital area, using aseptic technique. cc3 Blood collected. 20:25 First set of blood cultures drawn by ED staff. aa1 20:26 Mikhail Chaidez MD is Hospitalizing Provider. jr8 20:45 Second set of blood cultures drawn by ED staff. aa1 23:21 No provider procedures requiring assistance completed. Patient admitted, IV remains in aa1 place. Administered Medications: 20:31 Drug: SOLU-Medrol 125 mg Route: IVP; Site: left antecubital; aa1 21:31 Follow up: Response: No adverse reaction; Marked relief of symptoms aa1 20:45 Drug: Rocephin 1 grams Route: IV; Rate: calculated rate; Site: left antecubital; aa1 20:50 Follow up: IV Status: Completed infusion; IV Intake: 10ml aa1 20:50 Drug: Zithromax 500 mg Route: IVPB; Infused Over: 1 hrs; Site: right antecubital; aa1 21:50 Follow up: IV Status: Completed infusion; IV Intake: 250ml aa1 Intake: 20:50 IV: 10ml; Total: 10ml. aa1 21:50 IV: 250ml; Total: 260ml. aa1 Outcome: 20:27 Decision to Hospitalize by Provider. jr8 23:41 Admitted to Tele accompanied by tech, via stretcher, room 411, with oxygen, with chart, aa1 Report called to CAROLYN Ward 23:41 Condition: stable 23:41 Instructed on the need for admit, Demonstrated understanding of instructions. 23:42 Patient left the ED. aa1 Signatures: Dispatcher [employer] EDMS Shanna Rodriguez RN RN aj1 Trinity Oviedo RN RN aa1 Monisha Mae Josh, PA PA jr8 Macarena Moreno3 Carlo Toledo ag4 Corrections: (The following items were deleted from the chart) :22 19:11 Presenting complaint: Patient states: Shortness of breath, leg swelling. Patient lakshmi had labs drawn on Friday, was told that his D-Dimer was elevated and to come to the hospital for a CT, but could not get insurance approval so he left before he got the CT. Patient appears distressed, tachypneic. Os sat 77% on 2L nc [facility] 19:22 19:11 Transition of care: patient was not received from another setting of care. [place] [id number] 19:22 19:11 Onset of symptoms was January 19, 2019 [place] [id number] 19:22 19:11 Risk Assessment: Do you want to hurt yourself or someone else? Patient reports no [facility] desire to harm self or others. [facility] 19:11 Initial Sepsis Screen: Does the patient meet any 2 criteria? No. Patient's [facility] initial sepsis screen is negative. Does the patient have a suspected source of infection? No. Patient's initial sepsis screen is negative. [facility] 19:11 Care prior to arrival: None. [place] [id number] 19:11 Acuity: ANITHA 2 [place] [id number] 21:31 IV Status: Completed infusion; IV Intake: 250ml aa1 aa1
[2019-01-20] MEDS ORDERED: IPRATROPIUM BROM 0.5MG/2.5ML NEB PRN ×2 (00:06→14:00)
[2019-01-20] MEDS ORDERED: ALBUTEROL 2.5 MG/3 ML NEB SOL NEB PRN ×2 (00:06→14:00)
[2019-01-20] MEDS ORDERED: ONDANSETRON 4 MG/2 ML VIAL IV PRN (00:06)
[2019-01-20] MEDS ORDERED: ACETAMINOPHEN 500 MG TAB PO PRN (00:06)
[2019-01-20 01:38] VITALS: O2SAT 95
[2019-01-20 05:53] LABS: Absolute Lymphocytes (CBC) 0.6 K/uL (0.7-4.9); Absolute Neutrophil 5.1 K/uL (1.8-8.0); Basophils % 0.5 % (0-1.3); Lymphocytes % 9.7 % (15.3-44.8); Monocytes % 0.7 % (3.3-12.3); RBC Red Blood Cell Count 4.65 M/uL (4.33-5.43)
[2019-01-20 06:08] LABS: Potassium 3.8 mmol/L (3.5-5.1)
[2019-01-20 07:50] LABS: Blood Morphology Comment NOT SEEN (NOT SEEN); Platelet Estimate ADEQ; Urine White Blood Cell Casts OK
[2019-01-20 07:51] VITALS: BMI 29.1
[2019-01-20] MEDS ORDERED: CEFTRIAXONE 1 GM/NS 50 ML 1 GM/50 ML BAG IV SCH (09:00)
[2019-01-20] MEDS ORDERED: CEFTRIAXONE/SWI 1gm 1 GM/10 ML SYR IV SCH (09:00)
[2019-01-20] MEDS ORDERED: AZITHROMYCIN IV 250 MG in NA CHLORIDE 0.9% 250 ML IVPB SCH (09:00)
--- NOTE | 2019-01-20 10:30 | EKG ---
Test Date: 2019-01-19 Test Time: 19:09:37 Store Clerk Cashier: [id number] MEASUREMENT RESULTS: Intervals: Rate: 72 [place]: 120 QRSD: 162 QT: 436 QTc: 477 [place]: P: 0 [place]: 120 QRS: 6 T: 62 INTERPRETIVE STATEMENTS: Atrial-sensed ventricular-paced rhythm tracking sinus rhythm with premature ventricular complexes Compared to ECG 10/03/2018 22:17:56 PVC s are now present Electronically Signed On 01-20-19 10:30:15 CDT by Jose Enrique Nino
[2019-01-20 11:38] VITALS: BP 125/78; TEMP 97.6
--- NOTE | 2019-01-20 12:28 | P.SSS ---
Patient History Date of Service: 01/20/19 Reason for admission: POSITIVE D DIMER. 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 HE GOES TO DR. BURTON FOR LUNGS. WE SAW HIS LAB HAD HIGH D DIMER. I CALLED INSURANCE COMPANY FOR APPROVAL AND USUAL THEY DON'T APPROVE ANYTHING URGENT. NEXT DAY HE HAD TO GO TO DR. BURTON , WHO SENT HIM FOR CT SCAN[facility]. HE DROVE TO ER HERE AND DR HYLTON ADMITTED HIM. HE ON CT SCAN DOES NOT HAVE PE. HE HAS NO NEW SYMPTOMS LIKE FEVER OR SPUTUM. HIS DYSPNEA IS GETTING WORSE OVER TIME. Allergies ragweed pollen Allergy (Verified 10/04/18 04:13) Hives/Rash Home Medications: ALPRAZolam [Alprazolam] 0.25 mg PO BEDTIME 01/20/19 Aspirin [Aspir-Low] 81 mg PO DAILY 01/20/19 Budesonide [Pulmicort*] 1 vial IH BID 01/20/19 Cholecalciferol (Vitamin D3) [Vitamin D 5,000 IU Cap*] 5,000 units PO DAILY Clopidogrel Bisulfate [Plavix*] 75 mg PO DAILY 01/20/19 Collagenase [Santyl Ointment*] 1 appl TOP DAILY 01/20/19 D-Methorphan Hb/Prometh HCl [Promethazine-Dm Syrup] 1 tsp PO Q6H PRN 01/20/19 Duloxetine [Cymbalta *] 60 mg PO DAILY 01/20/19 Ipratropium [place] 2 sprays IN BID 01/20/19 Lactobacillus Acidophilus [Probiotic Acidophilus] 1 tab PO BEDTIME 01/20/19 Losartan/Hydrochlorothiazide [Losartan-Hctz 50-12.5 mg Tab] 1 tab PO DAILY 01/20 Metoprolol Succinate [Toprol Xl*] 25 mg PO BID 01/20/19 Olopatadine [Patanol Opth*] 2 sprays IN BID 01/20/19 Pantoprazole [Protonix Tab*] 40 mg PO DAILY 01/20/19 Pravastatin Sodium 40 mg PO BEDTIME 01/20/19 Tramadol HCl [Ultram] 50 mg PO BEDTIME PRN 01/20/19 Ubidecarenone [Co Q-10] 1 tab PO DAILY 01/20/19 levoFLOXacin [Levaquin*] 500 mg PO DAILY #7 tab 01/20/19 - Past Medical/Surgical History Has patient received pneumonia vaccine in the past: Yes Diabetic: No -: gerd -: diverticulosis -: diverticulitis -: barrets esophogus -: ulcerative colitis -: arthritis -: osteopenia -: CHF -: HTN -: pulmonary fibrosis -: kidney stones -: appy -: hernia repair x2 -: pacemaker/ defibrillator -: heart stent -: kyphoplasty to back -: lithotripsy - Family History Mother -: Cancer Notes: mom and dad had cancer - Social History Smoking Status: Former smoker Alcohol use: Yes CD- Drugs: No Caffeine use: Yes Place of Residence: Home Review of Systems 10-point ROS is otherwise unremarkable General: Weakness Respiratory: Shortness of Breath Physical Examination - Vital Signs Temperature: 97.6 F Blood Pressure: 125/78 Pulse: 72 Respirations: 18 Pulse Ox (%): 95 - Physical Exam General: Alert, Mild distress (HE LOOKS NO DIFFERENT THAN BEFORE. HE HAS DYSPNEA WITH MINIMAL EXERSION BUT THAT IS NOT NEW. ) HEENT: Atraumatic, PERRLA, Mucous membr. moist/pink, EOMI, Sclerae nonicteric Neck: Supple, 2+ carotid pulse no bruit, No LAD, Without JVD or thyroid abnormality Respiratory: Diminished ( ABOVE. ) Cardiovascular: Regular rate/rhythm, Normal S1 S2 Gastrointestinal: Normal bowel sounds, No tenderness Musculoskeletal: No tenderness Integumentary: No rashes Neurological: Normal gait, Normal speech, Normal strength at 5/5 x4 extr, Normal tone, Normal affect Lymphatics: No axilla or inguinal lymphadenopathy - Studies Laboratory Data (last 24 hrs) 01/19/19 19:10: PT 13.4 H, INR 1.14 01/19/19 19:10: WBC 7.9, Hgb 13.5 L, Hct 41.4, Plt Count 132 L 01/19/19 19:10: Sodium 138, Potassium 3.9, BUN 17, Creatinine 0.82, Glucose 137 H, Magnesium 2.1, Total Bilirubin 0.4, AST 19, ALT 12, Alkaline Phosphatase 65 - Diagnosis (Problem(s)) (1) Pulmonary fibrosis Current Visit: No Status: Chronic Plan: I SEE NO NEW CLINICAL FINDINGS OF PNEUMONIA. WHAT WE SEE ON CT SCAN IS WORSENED FIBROSIS. I STILL WILL GIVE HIM ETHELUIN FOR CT SCAN REPORT. HE IS STABLE BUT CARRIES POOR PROGNOSIS. HE IS IN PROCESS OF GETTING OFEV BY DR MORRISON. PROGNOSIS IS POOR OVERALL WITH SEVERE PULMONARY FIBROSIS. - Disposition Disposition: ROUTINE DISCHARGE Condition: SERIOUS
--- NOTE | 2019-01-20 13:45 | RAD REPORT ---
EXAM DESCRIPTION: US - Extrem Venous W Compress Ciro - 01/20/2019 1:21 pm CLINICAL HISTORY: Shortness of breath, leg pain and swelling COMPARISON: None. TECHNIQUE: Real-time sonographic evaluation of the bilateral lower extremity common femoral, superfi cial femoral, popliteal and posterior tibial veins was performed. FINDINGS: Normal compressibility, flow augmentation, phasic flow and spontaneous flow are identified in the right lower extremity common femoral, superficial femoral, popliteal and posterior tibial vei ns. No intraluminal filling defects seen on the right. There is normal compression and flow augmentation through the left common femoral and proximal portio ns of the superficial femoral vein. Hypoechoic thrombus is present in the distal aspect of the left s uperficial vein continuing into the popliteal vein. There is heterogeneous echogenicity within the le ft popliteal vein is likely a mixture of a old and new thrombus. Hypoechoic intraluminal clot is pres ent extending into the calf down to the posterior tibial veins. Findings telephoned to the referring clinician 1:41 p.m.. IMPRESSION: Acute left leg DVT within the distal aspect of the left superficial femoral vein into th e popliteal vein and deep veins of the calf. Mixed echogenicity in the popliteal vein is likely a combination of old or new thrombus. No right leg DVT.
[2019-01-20] MEDS ORDERED: ENOXAPARIN 80 MG/0.8 ML SQ ONE (13:52)
== END 2019-01-20 15:07 | disposition home or self-care (01) ==
LOC: ER 18:52 → ERHOLD 22:56 → INTOOBSV 22:56 → 4TH 23:33
PROVIDERS: ADMIT Internal Medicine; ATTEND Internal Medicine
DX: J84.10 Pulmonary fibrosis, unspecified (principal); I49.3 Ventricular premature depolarization; I82.412 Acute embolism and thrombosis of left femoral vein; I82.432 Acute embolism and thrombosis of left popliteal vein; I11.0 Hypertensive heart disease with heart failure; I50.9 Heart failure, unspecified; M19.90 Unspecified osteoarthritis, unspecified site; M85.80 Other specified disorders of bone density and structure, unspecified site; K21.9 Gastro-esophageal reflux disease without esophagitis; Z79.82 Long term (current) use of aspirin; Z79.899 Other long term (current) drug therapy; Z87.891 Personal history of nicotine dependence; Z95.810 Presence of automatic (implantable) cardiac defibrillator; Z95.5 Presence of coronary angioplasty implant and graft; Z99.81 Dependence on supplemental oxygen
CPT/HCPCS: 96365 ×2; 93005; 87040 ×2; 85025 ×2; 80048 ×2; 36415; 83735; 85610; 80076; 84484; 83880 ×2; 71275; 71045; 93970; 94640; 94760; 96375; 99285; Q9967; J0456 ×2; J1650; J0696 ×2; J2930; G0378 ×2